=== PATIENT | male | born 1970 | race Caucasian/White ===

== ENCOUNTER 2016-11-24 20:25 | Inpatient (IN) | payer OTHER ==
--- NOTE | 2016-11-24 20:57 | PDOC ---
History of Present Illness - General History Source: Patient Exam Limitations: No Limitations - History of Present Illness Initial Comments: 11/24/16 21:11 The patient is a 45 year old male, with a significant past medical history of hyperlipidemia and hypertension, who presents to the emergency department complaining of numbness to the left shoulder radiating down the left arm since approximately 1.5 hours ago. The patient reports he experienced an episode of left shoulder pain radiating down his left arm and mild chest pain at approximately 03:30 this morning. He states he took nitroglycerin during this episode, which made him feel dizzy and lightheaded, but relieved his symptoms. The patient reports he woke up asymptomatic, however, after going to work today his chest discomfort and left sided shoulder pain reemerged. The patient reports mild dyspnea and oral dryness during this episode. The patient states he called EMS and was administered 2 nitroglycerin while being transported to the ED. He reports his chest pain has since resolved, but he feels residual numbness to the left arm. The patient reports he had a similar episode in March of 2015, where he underwent cardiac catheterization but no stents were placed. The patient reports no issues since March 2015 until this morning. He subjectively reports the sensation in his left arm is different than in his right arm. The patient denies any palpitations, diaphoresis, or lower extremity edema. The patient denies any fever, chills, cough, or headache. The patient denies any recent travel or sick contacts. Allergies: None reported. Past Surgical History: None reported. Social History: Current everyday smoker(2 cigarettes per day). Denies alcohol or drug use. Cardiologsit: Dr. Miller <Orville Blue - Last Filed: 11/24/16 21:19> - General History Source: Patient <Jose Serrato - Last Filed: 11/25/16 04:38> - General Chief Complaint: Pain, Acute Stated Complaint: CHEST PAIN Time Seen by Provider: 11/24/16 20:32 Past History <Orville Blue - Last Filed: 11/24/16 21:19> - Past Medical History Hypercholesterolemia: Yes - Immunization History Immunization Up to Date: No - Psycho/Social/Smoking Cessation Hx Anxiety: No Suicidal Ideation: No Smoking History: Current some day smoker Have you smoked in the past 12 months: Yes Cigars Per Day: 2 Information on smoking cessation initiated: No Hx Alcohol Use: No Drug/Substance Use Hx: No Substance Use Type: None <Jose Serrato - Last Filed: 11/25/16 04:38> - Past Medical History Allergies/Adverse Reactions: Allergies Allergy/AdvReac Type Severity Reaction Status Date / Time No Known Allergies Allergy Verified 11/24/16 20:42 Home Medications: Ambulatory Orders Aspirin [ASA -] 81 mg PO HS 03/17/15 Atorvastatin Ca [Lipitor] 40 mg PO HS 11/24/16 Cholecalciferol (Vitamin D3) [Vitamin D3] 50,000 unit PO WEEKLY 11/25/16 Diltiazem HCl [Diltiazem ER] 120 mg PO HS 11/25/16 Fenofibric Acid (Choline) [Fenofibric Acid] 135 mg PO HS 11/25/16 Nitroglycerin Sublingual [Nitrostat -] 0.4 mg SL [id number] PRN 11/25/16 [place]-3 Fatty Acids [[place]-3] 1,000 mg PO HS 11/25/16 Review of Systems - Review of Systems Able to Perform ROS?: Yes Comments:: 11/24/16 21:11 CONSTITUTIONAL: Absent: fever, no chills, no fatigue EYES: Absent: visual changes ENT: Absent: ear pain, no sore throat CARDIOVASCULAR: Present: +chest discomfort, +lightheadness Absent: syncope, palpitations, irregular heart rate, peripheral edema RESPIRATORY: Present: +dyspnea Absent: cough, orthopnea, wheezing, stridor, hemoptysis GI: Absent: abdominal pain, no nausea, no vomiting, no constipation, no diarrhea GENITOURINARY: Absent: dysuria, no frequency, no hematuria MUSKULOSKELETAL: Present: +left shoulder pain and numbness radiating down left arm Absent: back pain, no arthralgia, no myalgia SKIN: Absent: rash NEURO: Absent: headache <Frankie Blueilsy - Last Filed: 11/24/16 21:19> *Physical Exam - Vital Signs Last Vital Signs Temp Pulse Resp BP Pulse Ox 97.8 F 86 16 126/74 98 11/24/16 20:37 11/24/16 20:37 11/24/16 20:37 11/24/16 20:37 11/24/16 20:37 - Physical Exam Comments: 11/24/16 21:13 GENERAL: Well-appearing, well-nourished. No apparent distress. Afebrile. HEENT: Normocephalic, atraumatic. PERRLA, EOMI. No conjunctival pallor. Sclera are non- icteric. Moist mucous membranes. Oropharynx is clear. NECK: Supple. Full ROM. No JVD. Carotid pulses 2+ and symmetric, without bruits. No thyromegaly. No lymphadenopathy. CARDIOVASCULAR: Regular rate and rhythm. No murmurs, rubs, or gallops. Distal pulses are 2+ and symmetric. PULMONARY: No evidence of respiratory distress. Lungs clear to auscultation bilaterally. No wheezing, rales or rhonchi. ABDOMEN: Soft, non-distended, non-tender. EXTREMITIES: Normal ROM in all four extremities. No gross deformities. SKIN: Warm, dry. No rash NEUROLOGICAL: No focal neurological deficits. <Orville Blue - Last Filed: 11/24/16 21:19> - Vital Signs Last Vital Signs Temp Pulse Resp BP Pulse Ox 97.8 F 86 16 126/74 98 11/24/16 20:37 11/24/16 20:37 11/24/16 20:37 11/24/16 20:37 11/24/16 20:37 <Jose Serrato - Last Filed: 11/25/16 04:38> Heart Score/ECG Review - ECG Impressions Comment:: 11/24/16 21:20 Vent. Rate: 85 bpm IMPRESSION: Normal sinus rhythm. <Orville Blue - Last Filed: 11/24/16 21:19> - History History: Slightly suspicious - Electrocardiogram EKG: Normal - Age Age: 45-65 - Risk Factors Risk Factors Heart Score: Yes Hx Hypercholesterolemia, Yes Hx Hypertension Based on the list above the patient has:: 1-2 risk factors - Troponin Troponin: </= normal limit - Score Heart Score - Total: 2 <Jose Serrato - Last Filed: 11/25/16 04:38> ED Treatment Course - LABORATORY CBC & Chemistry Diagram: 11/24/16 20:46 11/24/16 20:46 - RADIOLOGY Radiograph Interpretation: 11/24/16 21:18 EXAM: CXR INTERPRETED BY: Dr. Joseph REVIEWED BY: Dr. Serrato IMPRESSION: No significant interval change or acute lung disease present. <Orville Blue - Last Filed: 11/24/16 21:19> - LABORATORY CBC & Chemistry Diagram: 11/24/16 20:46 11/24/16 20:46 - RADIOLOGY Radiology Studies Ordered: Category Date Time Status CHEST X-RAY PORTABLE* [RAD] Stat Radiology 11/24/16 20:39 Completed <Jose Serrato - Last Filed: 11/25/16 04:38> Medical Decision Making - Medical Decision Making 11/25/16 04:37 Dr. Serrato: The scribe's documentation has been prepared under my direction and personally reviewed by me in its entirery. I confirm that the note above accurately reflects all work, treatment, procedures, and medical decision making performed by me. <Jose Serrato - Last Filed: 11/25/16 04:38> *DC/Admit/Observation/Transfer - Attestations Scribe Attestion: 11/24/16 21:14 Documentation prepared by Orville Blue, acting as certified medical asst for Jose Serrato DO. <Orville Blue - Last Filed: 11/24/16 21:19> - Discharge Dispostion Admit: Yes <Jose Serrato - Last Filed: 11/25/16 04:38> Diagnosis at time of Disposition: Chest pain Qualifiers: Chest pain type: precordial chest pain Qualified Code(s): R07.2 - Precordial pain - Discharge Dispostion Condition at time of disposition: Fair - Referrals
[2016-11-24 21:13] LABS: BASOPHIL 0.5 % (0-2.0); EOSINOPHIL 3.7 % (0-4.5); MCH 29.3 pg (25.7-33.7); MCHC 33.9 g/dl (32.0-35.9); MEAN CELL VOLUME 86.5 fl (80-96); MEAN PLT VOLUME 8.2 fl (7.5-11.1); NEUTROPHILS 49.4 % (42.8-82.8); PLATELET COUNT 270 K/MM3 (134-434); RDW 13.1 % (11.9-15.9); WHITE BLOOD COUNT 8.4 K/mm3 (4.0-10.0)
[2016-11-24 21:18] LABS: INR 1.12 (0.82-1.09); PROTHROMBIN TIME (PATIENT) 12.3 SEC (9.98-11.88)
[2016-11-24 21:27] LABS: ALBUMIN 3.7 g/dl (3.4-5.0); ANION GAP 9 (8-16); BILIRUBIN,TOTAL 0.3 mg/dL (0.2-1.0); CALCIUM 8.4 mg/dL (8.5-10.1); CO2 26 mmol/L (21-32); CREATININE 1.3 mg/dL (0.7-1.3); GLUCOSE,RANDOM 100 mg/dL (74-106); MAGNESIUM 1.8 mg/dL (1.8-2.4); SGOT/AST 26 U/L (15-37); SGPT/ALT 54 U/L (12-78); TOT PROT 6.9 g/dl (6.4-8.2)
[2016-11-24 21:30] LABS: ALK PHOS 69 U/L (45-117); TROPONIN I < 0.02 ng/ml (0.00-0.05)
[2016-11-24] MEDS ORDERED: ONDANSETRON 4 MG/2 ML VIAL IVPUSH STA (21:53)
[2016-11-24] MEDS ORDERED: morphine CARPU-JECT 2 MG/1 ML DISP.SYRIN IVPUSH ONE (21:53)
[2016-11-24] MEDS ORDERED: ONDANSETRON 4 MG/2 ML VIAL ONE (22:15)
[2016-11-24] MEDS ORDERED: morphine CARPU-JECT 4 MG/1 ML DISP.SYRIN ONE (22:15)
[2016-11-24] MEDS ORDERED: morphine CARPU-JECT 2 MG/1 ML DISP.SYRIN ONE (22:15)
[2016-11-25] MEDS ORDERED: ATORVASTATIN CA 40 MG TABLET (FP) PO SCH
--- NOTE | 2016-11-25 00:25 | HP ---
CHIEF COMPLAINT: Chest pain PCP: none, previously [facility] but insurance changed HISTORY OF PRESENT ILLNESS: This is a 45 year old male with a past medical history of hyperlipidemia who presented to the ED via EMS for chest and left arm pain with left arm, neck and jaw numbness. The pain initially started yesterday at 330am; he took 1 NTG which relieved the pain and he went back to sleep. Upon awakening he felt fine and so he went to work. Later at work the pain recurred and so he called 911. EMS gave 2 NTG with some relief of pain but numbness persisted. EMS also gave 4 baby aspirin. The ED gave 6mg morphine and pt states his pain is a 3/10 at present. Pt denies any other complaints. No palpitations, SOB, nausea or vomiting. ER course was notable for: (1) unremarkable ECG (2) troponin WNL (3) Recent Travel: [place] in June PAST MEDICAL HISTORY: HLD Pt DENIES any h/o HTN, unclear why he is on cardizem CD PAST SURGICAL HISTORY: cardiac cath 03/2015, no stent, pt states there was a blockage which was relieved Social History: Smokin-2 cigars per month. DENIES ANY cigarette use Alcohol: 1x/week Drugs: pt denies Family History: mother with HLD father with arthritis 2 brothers and 2 sisters without any medical problems Allergies No Known Allergies Allergy (Verified 11/24/16 20:42) HOME MEDICATIONS: 3 Medication Instructions Recorded Aspirin [ASA -] 81 mg PO DAILY 03/17/15 Atorvastatin Ca [Lipitor] 40 mg PO HS 11/24/16 Cholecalciferol (Vitamin D3) 50,000 unit PO WEEKLY 11/25/16 [Vitamin D3] Diltiazem HCl [Diltiazem ER] 120 mg PO HS 11/25/16 Fenofibric Acid (Choline) 135 mg PO HS 11/25/16 [Fenofibric Acid] Nitroglycerin Sublingual 0.4 mg SL [id number] PRN 11/25/16 [Nitrostat -] [place]-3 Fatty Acids [[place]-3] 1,000 mg PO HS 11/25/16 REVIEW OF SYSTEMS CONSTITUTIONAL: Absent: fever, chills, diaphoresis, generalized weakness, malaise, loss of appetite, weight change HEENT: Absent: rhinorrhea, nasal congestion, throat pain, throat swelling, difficulty swallowing, mouth swelling, ear pain, eye pain, visual changes CARDIOVASCULAR: Present: chest pain, left arm pain/numbness Absent: syncope, palpitations, irregular heart rate, lightheadedness, peripheral edema RESPIRATORY: Absent: cough, shortness of breath, dyspnea with exertion, orthopnea, wheezing, stridor, hemoptysis GASTROINTESTINAL: Absent: abdominal pain, abdominal distension, nausea, vomiting, diarrhea, constipation, melena, hematochezia GENITOURINARY: Absent: dysuria, frequency, urgency, hesitancy, hematuria, flank pain, genital pain MUSCULOSKELETAL: Absent: myalgia, arthralgia, joint swelling, back pain, neck pain SKIN: Absent: rash, itching, pallor HEMATOLOGIC/IMMUNOLOGIC: Absent: easy bleeding, easy bruising, lymphadenopathy, frequent infections ENDOCRINE: Absent: unexplained weight gain, unexplained weight loss, heat intolerance, cold intolerance NEUROLOGIC: Absent: headache, focal weakness or paresthesias, dizziness, unsteady gait, seizure, mental status changes, bladder or bowel incontinence PSYCHIATRIC: Absent: anxiety, depression, suicidal or homicidal ideation, hallucinations. PHYSICAL EXAMINATION Vital Signs - 24 hr 3 11/24/16 20:37 Temperature 97.8 F Pulse Rate 86 Respiratory 16 Rate Blood Pressure 126/74 O2 Sat by Pulse 98 Oximetry (%) GENERAL: Awake, alert, and fully oriented, in no acute distress. HEAD: Normal with no signs of trauma. EYES: Pupils equal, round and reactive to light, extraocular movements intact, sclera anicteric, conjunctiva clear. No lid lag. EARS, NOSE, THROAT: Ears normal, nares patent, oropharynx clear without exudates. Moist mucous membranes. NECK: Normal range of motion, supple without lymphadenopathy, JVD, or masses. LUNGS: Breath sounds equal, clear to auscultation bilaterally. No wheezes, and no crackles. No accessory muscle use. HEART: Regular rate and rhythm, normal S1 and S2 without murmur, rub or gallop. ABDOMEN: Soft, nontender, not distended, normoactive bowel sounds, no guarding, no rebound, no masses. No hepatomegaly or splenomegaly. MUSCULOSKELETAL: Normal range of motion at all joints. No bony deformities or tenderness. No CVA tenderness. UPPER EXTREMITIES: 2+ pulses, warm, well-perfused. No cyanosis. No clubbing. Cap refill <2 seconds. No peripheral edema. LOWER EXTREMITIES: 2+ pulses, warm, well-perfused. No calf tenderness. No peripheral edema. NEUROLOGICAL: Cranial nerves II-XII intact. Normal speech. Normal gait. PSYCHIATRIC: Cooperative. Good eye contact. Appropriate mood and affect. SKIN: Warm, dry, normal turgor, no rashes or lesions noted. Laboratory Results - last 24 hr 3 11/24/16 11/24/16 11/24/16 20:46 20:46 20:46 WBC 8.4 D RBC 4.80 Hgb 14.1 Hct 41.6 MCV 86.5 MCHC 33.9 RDW 13.1 Plt Count 270 D MPV 8.2 Neutrophils % 49.4 Lymphocytes % 37.3 Monocytes % 9.1 Eosinophils % 3.7 Basophils % 0.5 INR 1.12 Sodium 140 Potassium 3.7 Chloride 105 Carbon Dioxide 26 Anion Gap 9 BUN 18 Creatinine 1.3 D Creat Clearance w eGFR 59.97 Random Glucose 100 Calcium 8.4 L Magnesium 1.8 Total Bilirubin 0.3 D AST 26 ALT 54 D Alkaline Phosphatase 69 Creatine Kinase 215 D Creatine Kinase Index 0.5 CK-MB (CK-2) 1.087 CK-MB (CK-2) Rel Index Troponin I < 0.02 Total Protein 6.9 Albumin 3.7 ECG: NSR rate 85, QTC 426, no ST/T changes CXR: Impression: No significant interval change or lung disease is present. ASSESSMENT/PLAN: 45yM with PMH HLD presented to ED for chest pain. He is being admitted for further observation. Chest pain - troponin neg x 1, trend x 2 more - echo ordered - HEART score 3 - place in observation - cardiology consult - received ASA via EMS HLD - cont home lipitor DVT PPX - expected LOS <48h, no chemoprophylaxis, if extends beyond, reassess indication FEN - defer IVF, tolerating po - repeat labs in am, lytes stable - regular diet Dispo: Pt currently requires inpatient observation for his emergent condition. Visit type - Emergency Visit Emergency Visit: Yes ED Registration Date: 11/24/16 Care time: The patient presented to the Emergency Department on the above date and was hospitalized for further evaluation of their emergent condition. - New Patient This patient is new to me today: Yes Date on this admission: 11/25/16 - Critical Care Critical Care patient: No
[2016-11-25] MEDS ORDERED: ATORVASTATIN CA 40 MG TABLET (FP) ONE (00:32)
[2016-11-25] MEDS ORDERED: PATIENT'S OWN MEDICATION (NON-FORMULARY) (Cholecalciferol (Vitamin D3) [Vitamin D3] 50,000 PO SCH (01:30)
[2016-11-25 01:35] VITALS: BMI 30.5
--- NOTE | 2016-11-25 02:32 | PN ---
Teaching Attending Note ATTENDING PHYSICIAN STATEMENT I saw and evaluated the patient. I reviewed the resident's note and discussed the case with the resident. I agree with the resident's findings and plan as documented. SUBJECTIVE: OBJECTIVE: ASSESSMENT AND PLAN:
[2016-11-25 03:24] LABS: TROPONIN I < 0.02 ng/ml (0.00-0.05)
[2016-11-25 09:43] LABS: BASOPHIL 0.5 % (0-2.0); MCH 29.7 pg (25.7-33.7); MCHC 34.5 g/dl (32.0-35.9); NEUTROPHILS 50.4 % (42.8-82.8); PLATELET COUNT 238 K/MM3 (134-434); RDW 12.8 % (11.9-15.9); WHITE BLOOD COUNT 7.4 K/mm3 (4.0-10.0)
[2016-11-25 09:52] LABS: CALCIUM 8.2 mg/dL (8.5-10.1)
[2016-11-25] MEDS ORDERED: ASPIRIN 81 MG CHEWABLE TABLETS PO SCH (10:00)
[2016-11-25 10:01] LABS: ANION GAP 7 (8-16); CHOLESTEROL 133 mg/dL (50-200); CO2 27 mmol/L (21-32); CREATININE 1.1 mg/dL (0.7-1.3); GLUCOSE,RANDOM 93 mg/dL (74-106); LDL CHOLESTEROL (ONLY SJRH) 53 mg/dL (5-100); MAGNESIUM 1.9 mg/dL (1.8-2.4); PHOSPHOROUS 3.4 mg/dL (2.5-4.9); TROPONIN I < 0.02 ng/ml (0.00-0.05)
--- NOTE | 2016-11-25 10:03 | EKG ---
Test Reason : Blood Pressure : / mmHG Vent. Rate : 073 BPM Atrial Rate : 073 BPM P-R Int : 210 ms QRS Dur : 100 ms QT Int : 396 ms P-R-T Axes : 056 017 021 degrees QTc Int : 436 ms SINUS RHYTHM WITH 1ST DEGREE A-V BLOCK OTHERWISE NORMAL ECG WHEN COMPARED WITH ECG OF 24-NOV-2016 20:34, [place] INTERVAL HAS INCREASED Confirmed by YOLANDA FAIRCHILD, JESSICA ([id number]) on 11/25/2016 10:03:31 AM Referred By: LOULOU FARRAR Confirmed By:JESSICA GUERRERO MD
--- NOTE | 2016-11-25 10:08 | EKG ---
Test Reason : Blood Pressure : / mmHG Vent. Rate : 085 BPM Atrial Rate : 085 BPM P-R Int : 168 ms QRS Dur : 088 ms QT Int : 358 ms P-R-T Axes : 022 -04 018 degrees QTc Int : 426 ms NORMAL SINUS RHYTHM WHEN COMPARED WITH ECG OF 18-MAR-2015 08:52, NO SIGNIFICANT CHANGE WAS FOUND Confirmed by JESSICA GUERRERO MD ([id number]) on 11/25/2016 10:08:03 AM Referred By: Confirmed By:JESSICA GUERRERO MD
--- NOTE | 2016-11-25 13:43 | PN ---
Physical Exam: SUBJECTIVE: Patient seen and examined at bedside, denies chest pain, shortness of breath, dizziness, light-headedness, headache, states had a good night sleep and feeling better. OBJECTIVE: Vital Signs Period Temp Pulse Resp BP Sys/Booth Pulse Ox Last 24 Hr 97.9 F-98.2 F 69-78 16-16 101-105/62-74 96-96 GENERAL: The patient is awake, alert, and fully oriented, in no acute distress. LUNGS: Breath sounds equal, clear to auscultation bilaterally, no wheezes, no crackles, no accessory muscle use. HEART: Regular rate and rhythm, S1, S2 without murmur, rub or gallop. ABDOMEN: Soft, nontender, nondistended, normoactive bowel sounds, no guarding, no rebound, no hepatosplenomegaly, no masses. EXTREMITIES: 2+ pulses, warm, well-perfused, no edema. NEUROLOGICAL: Cranial nerves II through XII grossly intact. Normal speech, gait not observed. PSYCH: Normal mood, normal affect. SKIN: Warm, dry, normal turgor, no rashes or lesions noted CBCD WBC 7.4 K/mm3 (4.0-10.0) 11/25/16 08:43 RBC 4.58 M/mm3 (4.00-5.60) 11/25/16 08:43 Hgb 13.6 GM/dL (11.7-16.9) 11/25/16 08:43 Hct 39.4 % (35.4-49) 11/25/16 08:43 MCV 86.0 fl (80-96) 11/25/16 08:43 MCHC 34.5 g/dl (32.0-35.9) 11/25/16 08:43 RDW 12.8 % (11.9-15.9) 11/25/16 08:43 Plt Count 238 K/MM3 (134-434) 11/25/16 08:43 MPV 8.0 fl (7.5-11.1) 11/25/16 08:43 CMP Sodium 137 mmol/L (136-145) 11/25/16 08:20 Potassium 4.2 mmol/L (3.5-5.1) 11/25/16 08:20 Chloride 103 mmol/L (98-107) 11/25/16 08:20 Carbon Dioxide 27 mmol/L (21-32) 11/25/16 08:20 Anion Gap 7 (8-16) L 11/25/16 08:20 BUN 13 mg/dL (7-18) D 11/25/16 08:20 Creatinine 1.1 mg/dL (0.7-1.3) 11/25/16 08:20 Creat Clearance w eGFR 59.97 (>60) 11/24/16 20:46 Random Glucose 93 mg/dL (74-106) 11/25/16 08:20 Calcium 8.2 mg/dL (8.5-10.1) L 11/25/16 08:20 Total Bilirubin 0.3 mg/dL (0.2-1.0) D 11/24/16 20:46 AST 26 U/L (15-37) 11/24/16 20:46 ALT 54 U/L (12-78) D 11/24/16 20:46 Alkaline Phosphatase 69 U/L (45-117) 11/24/16 20:46 Total Protein 6.9 g/dl (6.4-8.2) 11/24/16 20:46 Albumin 3.7 g/dl (3.4-5.0) 11/24/16 20:46 CARDIAC ENZYMES Creatine Kinase 153 IU/L (39-308) 11/25/16 08:20 Troponin I < 0.02 ng/ml (0.00-0.05) 11/25/16 08:20 Laboratory Results - last 24 hr 11/25/16 11/25/16 11/25/16 02:30 02:30 08:20 WBC RBC Hgb Hct MCV MCHC RDW Plt Count MPV Neutrophils % Lymphocytes % Monocytes % Eosinophils % Basophils % Sodium 137 Potassium 4.2 Chloride 103 Carbon Dioxide 27 Anion Gap 7 L BUN 13 D Creatinine 1.1 Random Glucose 93 Calcium 8.2 L Phosphorus 3.4 Magnesium 1.9 Creatine Kinase 171 D 153 Creatine Kinase Index 0.7 CK-MB (CK-2) 1.136 CK-MB (CK-2) Rel Index Cancelled Troponin I < 0.02 < 0.02 Triglycerides 180 H D Cholesterol 133 D Total LDL Cholesterol 53 D HDL Cholesterol 52 D 11/25/16 11/25/16 08:20 08:43 WBC 7.4 RBC 4.58 Hgb 13.6 Hct 39.4 MCV 86.0 MCHC 34.5 RDW 12.8 Plt Count 238 MPV 8.0 Neutrophils % 50.4 Lymphocytes % 33.6 Monocytes % 10.5 H Eosinophils % 5.0 H Basophils % 0.5 Sodium Potassium Chloride Carbon Dioxide Anion Gap BUN Creatinine Random Glucose Calcium Phosphorus Magnesium Creatine Kinase Creatine Kinase Index CK-MB (CK-2) CK-MB (CK-2) Rel Index Cancelled Troponin I Triglycerides Cholesterol Total LDL Cholesterol HDL Cholesterol 11/24/16 11/25/16 11/25/16 20:46 02:30 08:20 Troponin I < 0.02 < 0.02 < 0.02 Active Medications Generic Name Dose Route Start Last Admin Trade Name Freq PRN Reason Stop Dose Admin Aspirin 81 mg 11/25/16 10:00 11/25/16 10:31 Asa - PO 81 mg DAILY JOI Administration Atorvastatin Calcium 40 mg 11/25/16 00:00 11/25/16 00:32 Lipitor - PO 40 mg HS JOI Administration Diltiazem HCl 120 mg 11/25/16 22:00 Cardizem Cd - PO HS JOI Fenofibric Acid 135 mg 11/25/16 22:00 Trilipix - PO HS JOI [id number] Ethyl Esters 1 gm 11/25/16 22:00 Lovaza - PO HS JOI Imaging: ECHO (11/25/16): shows Left ventricular systolic function is normal. Mild mitral regurgitation and mild tricuspid regurgitation, right ventricular systolic pressure is normal, and no pericardial effusion. Stress ECHO (11/25/16): Negative exercise stress echocardiogram EKG (11/24/16): Normal sinus rhythm, no significant change from previous EKG CXR (11/24/16): no significant interval change, or no acute lung infiltrate present. ASSESSMENT: This is a 45 year old male with a past medical history of hypertension, hyperlipidemia, and history of cardiac cath w/o stent (03/2015) who presented to the ED after feeling pain the the chest and left arm, and numbness to the neck and jaw, admitted for cardiac work up and telemetry observation. PLAN: Cardiac:
--- NOTE | 2016-11-25 14:51 | DS ---
Physical Exam: SUBJECTIVE: Patient seen and examined at bedside, denies chest pain, shortness of breath, dizziness, light-headedness, headache, states had a good night sleep and feeling better. OBJECTIVE: Vital Signs Period Temp Pulse Resp BP Sys/Booth Pulse Ox Last 24 Hr 97.9 F-98.2 F 69-78 16-16 101-105/62-74 96-96 PHYSICAL EXAM GENERAL: The patient is awake, alert, and fully oriented, in no acute distress. LUNGS: Breath sounds equal, clear to auscultation bilaterally, no wheezes, no crackles, no accessory muscle use. HEART: Regular rate and rhythm, S1, S2 without murmur, rub or gallop. ABDOMEN: Soft, nontender, nondistended, normoactive bowel sounds, no guarding, no rebound, no hepatosplenomegaly, no masses. EXTREMITIES: 2+ pulses, warm, well-perfused, no edema. NEUROLOGICAL: Cranial nerves II through XII grossly intact. Normal speech, gait not observed. PSYCH: Normal mood, normal affect. SKIN: Warm, dry, normal turgor, no rashes or lesions noted LABS CBCD WBC 7.4 K/mm3 (4.0-10.0) 11/25/16 08:43 RBC 4.58 M/mm3 (4.00-5.60) 11/25/16 08:43 Hgb 13.6 GM/dL (11.7-16.9) 11/25/16 08:43 Hct 39.4 % (35.4-49) 11/25/16 08:43 MCV 86.0 fl (80-96) 11/25/16 08:43 MCHC 34.5 g/dl (32.0-35.9) 11/25/16 08:43 RDW 12.8 % (11.9-15.9) 11/25/16 08:43 Plt Count 238 K/MM3 (134-434) 11/25/16 08:43 MPV 8.0 fl (7.5-11.1) 11/25/16 08:43 CMP Sodium 137 mmol/L (136-145) 11/25/16 08:20 Potassium 4.2 mmol/L (3.5-5.1) 11/25/16 08:20 Chloride 103 mmol/L (98-107) 11/25/16 08:20 Carbon Dioxide 27 mmol/L (21-32) 11/25/16 08:20 Anion Gap 7 (8-16) L 11/25/16 08:20 BUN 13 mg/dL (7-18) D 11/25/16 08:20 Creatinine 1.1 mg/dL (0.7-1.3) 11/25/16 08:20 Creat Clearance w eGFR 59.97 (>60) 11/24/16 20:46 Random Glucose 93 mg/dL (74-106) 11/25/16 08:20 Calcium 8.2 mg/dL (8.5-10.1) L 11/25/16 08:20 Total Bilirubin 0.3 mg/dL (0.2-1.0) D 11/24/16 20:46 AST 26 U/L (15-37) 11/24/16 20:46 ALT 54 U/L (12-78) D 11/24/16 20:46 Alkaline Phosphatase 69 U/L (45-117) 11/24/16 20:46 Total Protein 6.9 g/dl (6.4-8.2) 11/24/16 20:46 Albumin 3.7 g/dl (3.4-5.0) 11/24/16 20:46 CARDIAC ENZYMES Creatine Kinase 153 IU/L (39-308) 11/25/16 08:20 Troponin I < 0.02 ng/ml (0.00-0.05) 11/25/16 08:20 11/24/16 11/25/16 11/25/16 20:46 02:30 08:20 Troponin I < 0.02 < 0.02 < 0.02 Imaging: ECHO (11/25/16): shows Left ventricular systolic function is normal. Mild mitral regurgitation and mild tricuspid regurgitation, right ventricular systolic pressure is normal, and no pericardial effusion. Stress ECHO (11/25/16): Negative exercise stress echocardiogram. EKG (11/24/16): Normal sinus rhythm, no significant change from previous EKG. CXR (11/24/16): no significant interval change, or no acute lung infiltrate present. HOSPITAL COURSE: ASSESSMENT: This is a 45 year old male with a past medical history of hypertension, hyperlipidemia, and history of cardiac cath w/o stent (03/2015) who presented to the ED after feeling pain the the chest and left arm, and numbness to the neck and jaw, that he felt for 1.5 hours. He had an episode earlier that day at 0330AM that morning, where he took 1 NTG, the pain subsided went back to sleep and woke up asymptomatic, and the second episode occurred when he went to work later that day, called EMS and was given, 2 NTG, and [address] to the hospital. In the ED, he was given 4mg of morphine and pain was relieved to 3/10, and was admitted for cardiac work up and telemetry observation. In the ER (11/24/16), he had unremarkable EKG, troponin WNL, his CXR showed no acute lung infiltrate present or acute disease. On 11/25/16, second and third troponin negative, ECHO shows normal LV systolic function and and RV systolic pressure, no pericardial effusion, and Stress Echo was negative, discussed results with Tech Intern, Hubert FAIRCHILD. Patient is stable for discharge, denies and chest pain, numbness, palpitations, dizziness, lightheadedness, shortness of breath, diaphoresis. Instructed patient to continue with home medications, follow up with PCP and Tech Intern within 1 week, and to return the ED if he has any new, progressing or worsening symptoms. Date of Admission:11/24/16 Date of Discharge: 11/25/16 This discharge took 35 minutes to complete. Minutes to complete discharge: 35 Discharge Summary Reason For Visit: CHEST PAIN Current Active Problems Chest pain (Acute) Condition: Improved - Instructions Diet, Activity, Other Instructions: Please return the to Emergency Department with any new, progressing, or worsening symptoms. 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 Referrals: Amandeep Barnard MD [Staff Physician] - 1 Week (Please follow up with primary care provider within 1 week. 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 ) Disposition: HOME - Home Medications Comprehensive Discharge Medication List: Ambulatory Orders Aspirin [ASA -] 81 mg PO HS 03/17/15 Atorvastatin Ca [Lipitor] 40 mg PO HS 11/24/16 Cholecalciferol (Vitamin D3) [Vitamin D3] 50,000 unit PO WEEKLY 11/25/16 Diltiazem HCl [Diltiazem ER] 120 mg PO HS 11/25/16 Fenofibric Acid (Choline) [Fenofibric Acid] 135 mg PO HS 11/25/16 Nitroglycerin Sublingual [Nitrostat -] 0.4 mg SL [id number] PRN 11/25/16 [place]-3 Fatty Acids [[place]-3] 1,000 mg PO HS 11/25/16 This patient is new to me today: Yes Date on this admission: 11/25/16 Emergency Visit: Yes ED Registration Date: 11/24/16 Care time: The patient presented to the Emergency Department on the above date and was hospitalized for further evaluation of their emergent condition. Critical Care patient: No - Discharge Referral Referred to [facility] Yes Physician Referral: Amandeep Ignacio MD ([facility])
[2016-11-25 15:22] VITALS: BP 114/68; PULSE 84; TEMP 98.7
--- NOTE | 2016-11-25 16:27 | CON.CARD ---
Consult Consult Specialty:: Cardiology Referred by:: Hospitalist Medicine Reason for Consultation:: Left arm numbness - History of Present Illness Chief Complaint: Left arm numbness History of Present Illness: The patient is a 45 year old male with a past medical history of hyperlipidemia , unremarkable [facility] 2015 admitted for left arm and neck numbness, denies exertional component, chest pain, near or true syncope, palpitations, orthopnea , PND or LE edema. Stress echo without ischemia. - History Source History Provided By: Patient Limitations to Obtaining History: No Limitations - Past Medical History Cardio/Vascular: Yes: Hyperlipdemia - Alcohol/Substance Use Hx Alcohol Use: No - Smoking History Smoking history: Current some day smoker Have you smoked in the past 12 months: Yes Home Medications - Allergies Allergies/Adverse Reactions: Allergies Allergy/AdvReac Type Severity Reaction Status Date / Time No Known Allergies Allergy Verified 11/24/16 20:42 - Home Medications Home Medications: Ambulatory Orders Aspirin [ASA -] 81 mg PO HS 03/17/15 Atorvastatin Ca [Lipitor] 40 mg PO HS 11/24/16 Cholecalciferol (Vitamin D3) [Vitamin D3] 50,000 unit PO WEEKLY 11/25/16 Diltiazem HCl [Diltiazem ER] 120 mg PO HS 11/25/16 Fenofibric Acid (Choline) [Fenofibric Acid] 135 mg PO HS 11/25/16 Nitroglycerin Sublingual [Nitrostat -] 0.4 mg SL [id number] PRN 11/25/16 [place]-3 Fatty Acids [[place]-3] 1,000 mg PO HS 11/25/16 Review of Systems - Review of Systems Neurological: reports: Numbness Vital Signs: Vital Signs Temperature 98.7 F 11/25/16 14:00 Pulse Rate 84 11/25/16 14:00 Respiratory Rate 18 11/25/16 14:00 Blood Pressure 114/68 11/25/16 14:00 O2 Sat by Pulse Oximetry (%) 96 11/25/16 08:48 Constitutional: Yes: No Distress, Calm Neck: Yes: Supple Respiratory: Yes: Regular, CTA Bilaterally Gastrointestinal: Yes: Normal Bowel Sounds, Soft Cardiovascular: Yes: Regular Rate and Rhythm JVD: No Carotid Bruit: No Heart Sounds: Yes: S1, S2 Edema: No - Other Data Labs, Other Data: CBC, BMP 11/25/16 08:43 11/25/16 08:20 INR, PTT INR 1.12 (0.82-1.09) 11/24/16 20:46 Troponin, BNP 11/25/16 11/25/16 02:30 08:20 Troponin I < 0.02 < 0.02 Troponin, BNP 11/25/16 11/25/16 02:30 08:20 Troponin I < 0.02 < 0.02 NSR @ [address] 1[address] deg AVB Echo: Report Reviewed Ejection Fraction %: LVEF > or = 40 % Imaging - Results Chest X-ray: Report Reviewed (NAD) Problem List - Problems (1) Atypical chest pain Code(s): R07.89 - OTHER CHEST PAIN (2) Hyperlipidemia Code(s): E78.5 - HYPERLIPIDEMIA, UNSPECIFIED Qualifiers: Hyperlipidemia type: mixed hyperlipidemia Qualified Code(s): E78.2 - Mixed hyperlipidemia (3) Hypertension Code(s): I10 - ESSENTIAL (PRIMARY) HYPERTENSION Qualifiers: Hypertension type: essential hypertension Qualified Code(s): I10 - Essential (primary) hypertension Assessment/Plan 11/25/2016 Echo Normal biventricular size and fxn, mild MR, TR, stress echo without EKG or echo criteria for ischemia 1. Atypical chest pain syndrome with neg stress echo for ischemia 2. HTN 3. Hyperlipidemia P:1. Patient may be d/dalia from CV standpoint with f/u in office with Dr. Miller 2. Continue ASA 81 qd, Lipitor 40 qhs, Cardizem CD 120 qd, fenofibrate 135 qhs, Lovavza 1 qhs 3. Thank you for consultative opportunity
[2016-11-25] MEDS ORDERED: FENOFIBRIC ACID 135 MG CAP PO SCH (22:00)
[2016-11-25] MEDS ORDERED: OMEGA-3 ACID ETHYL ESTERS (FATTY-ACIDS) 1 GM CAPSULE (FP) PO SCH (22:00)
== END 2016-11-25 17:25 | disposition home or self-care (01) | DRG 143 ==
LOC: JER 20:25 → JERBED 21:52 → J4S 11-25 00:48
PROVIDERS: ADMIT Internal Medicine; ATTEND Registered Nurse
DX: R07.89 Other chest pain (principal); E78.5 Hyperlipidemia, unspecified; F17.210 Nicotine dependence, cigarettes, uncomplicated; I10 Essential (primary) hypertension
CPT/HCPCS: 36415; 71010-TC; 80048; 80053; 80061; 82550; 82553; 83721; 83735; 84100; 84484; 85025; 85610; 93005; 93010; 93306-TC; 93351; 99285-25

== ENCOUNTER 2017-05-05 20:25 | Emergency (ER) | payer OTHER ==
[2017-05-05 20:43] VITALS: BP 144/81; PULSE 78; TEMP 97.5; BMI 29.7
--- NOTE | 2017-05-05 21:25 | PDOC ---
History of Present Illness - General History Source: Patient Exam Limitations: No Limitations - History of Present Illness Initial Comments: 05/05/17 21:34 The patient is a 46 year old male with a significant past medical history of borderline diabetes, HLD and HTN who presents to the ED with complaints of chest pain for an hour and a half. The patient reports he sat down after work and had a sudden onset of mid sternal chest pressure. He reports the chest pain radiates down his left arm. Patient also states he had a similar episode last Monday after eating breakfast. He states this is his third episode in the past 2 years. Patient recently traveled from [place]. Denies fevers or chills. Denies shortness of breath or cough. Denies palpitations. Denies abdominal pain, nausea, vomiting, or diarrhea. Denies any other symptoms. Social hx: Former smoker. Denies alcohol or drug use. 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 PMD: Brittney Lawler <Nicolás Liz - Last Filed: 05/05/17 21:34> <Venita Darden - Last Filed: 05/06/17 02:31> - General Chief Complaint: Pain Stated Complaint: CHEST PAIN Time Seen by Provider: 05/05/17 20:48 Past History <Nicolás Liz - Last Filed: 05/05/17 21:34> - Past Medical History Cardiac Disorders: Yes (angina, CAD) HTN: Yes Hypercholesterolemia: Yes - Surgical History Cardiac Surgery: Yes (cardiac cath 2014-no stents placed) Orthopedic Surgery: No - Immunization History Immunization Up to Date: No - Psycho/Social/Smoking Cessation Hx Anxiety: No Suicidal Ideation: Yes Smoking History: Never smoked Have you smoked in the past 12 months: Yes Cigars Per Day: 2 Information on smoking cessation initiated: No Hx Alcohol Use: No Drug/Substance Use Hx: No Substance Use Type: None Hx Substance Use Treatment: No <Venita Darden - Last Filed: 05/06/17 02:31> - Past Medical History Allergies/Adverse Reactions: Allergies Allergy/AdvReac Type Severity Reaction Status Date / Time No Known Allergies Allergy Verified 05/05/17 20:36 Home Medications: Ambulatory Orders Aspirin [ASA -] 81 mg PO HS 03/17/15 Atorvastatin Ca [Lipitor] 40 mg PO HS 11/24/16 Cholecalciferol (Vitamin D3) [Vitamin D3] 50,000 unit PO WEEKLY 11/25/16 Diltiazem HCl [Diltiazem 24Hr ER] 120 mg PO HS 11/25/16 Fenofibric Acid (Choline) [Fenofibric Acid] 135 mg PO HS 11/25/16 Nitroglycerin Sublingual [Nitrostat -] 0.4 mg SL [id number] PRN 11/25/16 [place]-3 Fatty Acids [[place]-3] 1,000 mg PO HS 11/25/16 Review of Systems - Review of Systems Able to Perform ROS?: Yes Comments:: 05/05/17 21:35 CONSTITUTIONAL: Absent: fever, chills, diaphoresis, generalized weakness, malaise, loss of appetite HEENT: Absent: rhinorrhea, nasal congestion, throat pain, throat swelling, difficulty swallowing, mouth swelling, ear pain, eye pain, visual Changes CARDIOVASCULAR: + chest pain, arm pain Absent: syncope, palpitations, irregular heart rate, lightheadedness, peripheral edema RESPIRATORY: Absent: cough, shortness of breath, dyspnea with exertion, orthopnea, wheezing, stridor, hemoptysis GASTROINTESTINAL: Absent: abdominal pain, abdominal distension, nausea, vomiting, diarrhea, constipation, melena, hematochezia GENITOURINARY: Absent: dysuria, frequency, urgency, hesitancy, hematuria, flank pain, genital pain MUSCULOSKELETAL: Absent: myalgia, arthralgia, joint swelling SKIN: Absent: rash, itching, pallor HEMATOLOGIC/IMMUNOLOGIC: Absent: easy bleeding, easy bruising, lymphadenopathy, frequent infections ENDOCRINE: Absent: unexplained weight gain, unexplained weight loss, heat intolerance, cold intolerance NEUROLOGIC: Absent: headache, focal weakness or paresthesias, dizziness, unsteady gait, seizure, mental status changes, bladder or bowel incontinence PSYCHIATRIC: Absent: anxiety, depression, suicidal or homicidal ideation, hallucinations. All Other Systems: Reviewed and Negative <Nicolás Liz - Last Filed: 05/05/17 21:34> *Physical Exam - Vital Signs Last Vital Signs Temp Pulse Resp BP Pulse Ox 97.5 F L 78 18 144/81 98 05/05/17 20:36 05/05/17 20:36 05/05/17 20:36 05/05/17 20:36 05/05/17 20:36 - Physical Exam Comments: 05/05/17 21:35 GENERAL: Well developed, well nourished. Awake and alert. No acute distress. HEENT: Normocephalic, atraumatic. PERRLA, EOMI. No conjunctival pallor. Sclera are non- icteric. Moist mucous membranes. Oropharynx is clear. NECK: Supple. Full ROM. No JVD. Carotid pulses 2+ and symmetric, without bruits. No thyromegaly. NCo lymphadenopathy. CARDIOVASCULAR: Regular rate and rhythm. No murmurs, rubs, or gallops. Distal pulses are 2+ and symmetric. PULMONARY: No evidence of respiratory distress. Lungs clear to auscultation bilaterally. No wheezing, rales or rhonchi. ABDOMINAL: Soft. Non-tender. Non-distended. No rebound or guarding. No organomegaly. Normoactive bowel sounds. MUSCULOSKELETAL Normal range of motion at all joints. No bony deformities or tenderness. No CVA tenderness. EXTREMITIES: No cyanosis. No clubbing. No edema. No calf tenderness. SKIN: Warm and dry. Normal capillary refill. No rashes. No jaundice. NEUROLOGICAL: Alert, awake, appropriate. Cranial nerves 2-12 intact. No deficits to light touch and temperature in face, upper extremities and lower extremities. No motor deficits in the in face, upper extremities and lower extremities. Normoreflexic in the upper and lower extremities. Normal speech. Toes are down- going bilaterally. Gait is normal without ataxia. PSYCHIATRIC: Cooperative. Good eye contact. Appropriate mood and affect. <Nicolás Liz - Last Filed: 05/05/17 21:34> - Vital Signs Last Vital Signs Temp Pulse Resp BP Pulse Ox 97.5 F L 78 18 144/81 98 05/05/17 20:36 05/05/17 20:36 05/05/17 20:36 05/05/17 20:36 05/05/17 20:36 <Venita Darden - Last Filed: 05/06/17 02:31> ED Treatment Course - LABORATORY CBC & Chemistry Diagram: 05/05/17 21:34 05/05/17 21:57 <Venita Darden - Last Filed: 05/06/17 02:31> Medical Decision Making - Medical Decision Making 05/06/17 02:28 Pt comes with CP that is atypical and began today after work. In the last few months, pt has had 3-4 episodes just like this. 2 years ago pt had completely clear coronories on cath. 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 Pt has slight pain at this time. Vitals are stable. Pt has no other complaints. He is not a smoker. Exam normal. EKG normal. CXR normal. Pt may have printzmental's angina. Pt will follow with cardiology and possible holter monitoring and repeat catheterization of cardiac tissues. <Venita Darden - Last Filed: 05/06/17 02:31> *DC/Admit/Observation/Transfer - Attestations Scribe Attestion: 05/05/17 21:35 Documentation prepared by Nicolás Liz, acting as special forces medical sergeant for Venita Darden MD <Nicolás Liz - Last Filed: 05/05/17 21:34> - Discharge Dispostion Admit: No <Venita Darden - Last Filed: 05/06/17 02:31> Diagnosis at time of Disposition: Atypical chest pain, Angina at rest - Discharge Dispostion Disposition: HOME Condition at time of disposition: Stable - Referrals Referrals: Brittney Sullivan MD [Primary Care Provider] - - Patient Instructions Printed Discharge Instructions: Variant Angina: Heart Spasms
[2017-05-05] MEDS ORDERED: ASPIRIN 81 MG CHEWABLE TABLETS PO ONE (21:35)
[2017-05-05] MEDS ORDERED: ASPIRIN COATED 81 MG TABLET.EC ONE (22:00)
[2017-05-05 22:22] LABS: BASOPHIL 0.8 % (0-2.0); EOSINOPHIL 2.9 % (0-4.5); MCH 29.3 pg (25.7-33.7); MCHC 33.5 g/dl (32.0-35.9); MEAN CELL VOLUME 87.5 fl (80-96); MEAN PLT VOLUME 7.8 fl (7.5-11.1); NEUTROPHILS 59.9 % (42.8-82.8); PLATELET COUNT 230 K/MM3 (134-434); RDW 13.4 % (11.9-15.9); WHITE BLOOD COUNT 9.7 K/mm3 (4.0-10.0)
[2017-05-05 22:59] LABS: ALBUMIN 3.8 g/dl (3.4-5.0); ANION GAP 11 (8-16); BILIRUBIN,TOTAL 0.4 mg/dL (0.2-1.0); CALCIUM 8.8 mg/dL (8.5-10.1); CO2 25 mmol/L (21-32); CREATININE 0.9 mg/dL (0.7-1.3); GLUCOSE,RANDOM 103 mg/dL (74-106); SGPT/ALT 54 U/L (12-78); TOT PROT 7.1 g/dl (6.4-8.2)
[2017-05-05 23:02] LABS: ALK PHOS 75 U/L (45-117); CPK 204 IU/L (39-308); TROPONIN I < 0.02 ng/ml (0.00-0.05)
[2017-05-05 23:04] LABS: SGOT/AST 32 U/L (15-37)
[2017-05-05 23:23] LABS: INR 1.07 (0.82-1.09); PROTHROMBIN TIME (PATIENT) 11.8 SEC (9.98-11.88)
--- NOTE | 2017-05-07 18:44 | EKG ---
Test Reason : Blood Pressure : / mmHG Vent. Rate : 081 BPM Atrial Rate : 081 BPM P-R Int : 170 ms QRS Dur : 104 ms QT Int : 380 ms P-R-T Axes : 045 -05 048 degrees QTc Int : 441 ms NORMAL SINUS RHYTHM INCOMPLETE RIGHT BUNDLE BRANCH BLOCK BORDERLINE ECG WHEN COMPARED WITH ECG OF 25-NOV-2016 08:29, [place] INTERVAL HAS DECREASED INCOMPLETE RIGHT BUNDLE BRANCH BLOCK IS NOW PRESENT FOLLOW UP TRACING IS RECOMMENDED Confirmed by AVERY QUINN MD ([id number]) on 05/07/2017 6:44:02 PM Referred By: Confirmed By:AVERY QUINN MD
== END 2017-05-05 23:36 | disposition home or self-care (01) ==
LOC: JER 20:25
DX: R07.89 Other chest pain (principal); I25.118 Atherosclerotic heart disease of native coronary artery with other forms of angina pectoris
CPT/HCPCS: 36415; 71020-TC; 80053; 84484; 85025; 85610; 93005; 93010; 99281-25

== ENCOUNTER 2018-03-28 21:12 | Observation (INO) | payer OTHER ==
[2018-03-28 21:21] VITALS: BMI 29.7
[2018-03-28] MEDS ORDERED: ASPIRIN 81 MG CHEWABLE TABLETS PO ONE (21:21)
--- NOTE | 2018-03-28 21:21 | PDOC ---
Rapid Medical Evaluation Time Seen by Provider: 03/28/18 21:15 Medical Evaluation: Allergies Allergy/AdvReac Type Severity Reaction Status Date / Time No Known Allergies Allergy Verified 05/05/17 20:36 03/28/18 21:16 Pt. 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 States he took a nitro 5 minutes ago with little relief of his pain. Admits to SOB. States he saw his PCP today who states he had EKG changes. Last cardiac cath in 2014, no stenting. Hx of HLD, pre-diabetic Exam: Appears in mild distress, AAOx3, breathing easily. RRR, CTAB Orders: CBC, CMP, Trop, Pt/INR, Mag, EKG, CXR Pt. to proceed to ED for further evaluation PCP: Brittney Sullivan MD Staple Processing Machine Operator: Dr. Miller Discharge Disposition - Diagnosis Chest pain Qualifiers: Chest pain type: unspecified Qualified Code(s): R07.9 - Chest pain, unspecified - Referrals - Patient Instructions - Post Discharge Activity
--- NOTE | 2018-03-28 22:21 | PDOC ---
History of Present Illness - General History Source: Patient Exam Limitations: No Limitations - History of Present Illness Initial Comments: 03/28/18 22:37 The patient is a 47 year old male, with a significant past medical history of borderline diabetes, HLD, cardiac cath (2014 - no stents) and HTN, who presents to the emergency department complaining of chest pain onset today. He describes his chest pain as ranging from mild to moderate, without radiation or modifying factors. He notes that he had a chest pain episode 2 days ago and drove to the ED but decided against being seeing. At the time he had chest pain, he also had shortness of breath, jaw pain, left arm pain and sweaty palms. He notes that he saw Dr. Brittney Sullivan today and made an appointment to see Dr. Miller tomorrow. The last time he saw Dr. Miller was 6 months ago. The patient was given Nitro and has improved. The patient denies headache or dizziness. Denies fever, chills, nausea, vomiting , diarrhea and constipation. Allergies: None Past surgical history: Cardiac cath (no stents) Social History: Cigar use (2 daily). No alcohol or drug use reported PMD: Dr. Brittney Sullivan. <Jose Rivera - Last Filed: 03/28/18 22:37> <Lisseth Hernandez - Last Filed: 03/29/18 01:41> - General Chief Complaint: Chest Pain Stated Complaint: CHEST PAIN Time Seen by Provider: 03/28/18 21:15 Past History <Jose Rivera - Last Filed: 03/28/18 22:37> - Past Medical History Cardiac Disorders: Yes (angina, CAD) COPD: No HTN: Yes Hypercholesterolemia: Yes - Surgical History Cardiac Surgery: Yes (cardiac cath 2014-no stents placed) Orthopedic Surgery: No - Immunization History Immunization Up to Date: No - Suicide/Smoking/Psychosocial Hx Smoking History: Never smoked Have you smoked in the past 12 months: Yes Cigars Per Day: 2 Information on smoking cessation initiated: No Hx Alcohol Use: No Drug/Substance Use Hx: No Substance Use Type: None Hx Substance Use Treatment: No <Lisseth Hernandez - Last Filed: 03/29/18 01:41> - Past Medical History Allergies/Adverse Reactions: Allergies Allergy/AdvReac Type Severity Reaction Status Date / Time No Known Allergies Allergy Verified 03/28/18 21:20 Home Medications: Ambulatory Orders Aspirin [ASA -] 81 mg PO HS 03/17/15 Atorvastatin Ca [Lipitor] 40 mg PO HS 11/24/16 Cholecalciferol (Vitamin D3) [Vitamin D3] 50,000 unit PO WEEKLY 11/25/16 Diltiazem HCl [Diltiazem 24Hr ER] 120 mg PO HS 11/25/16 Fenofibric Acid (Choline) [Fenofibric Acid] 135 mg PO HS 11/25/16 Nitroglycerin Sublingual [Nitrostat -] 0.4 mg SL [id number] PRN 11/25/16 [place]-3 Fatty Acids [[place]-3] 1,000 mg PO HS 11/25/16 Review of Systems - Review of Systems Able to Perform ROS?: Yes Comments:: 03/28/18 22:37 GENERAL/CONSTITUTIONAL: No fever or chills. No weakness. HEAD, EYES, EARS, NOSE AND THROAT: No change in vision. No ear pain or discharge. No sore throat. GASTROINTESTINAL: No nausea, vomiting, diarrhea or constipation. GENITOURINARY: No dysuria, frequency, or change in urination. CARDIOVASCULAR: (+) Chest pain. No shortness of breath. RESPIRATORY: No cough, wheezing, or hemoptysis. MUSCULOSKELETAL: No joint or muscle swelling or pain. No neck or back pain. SKIN: No rash NEUROLOGIC: No headache, vertigo, loss of consciousness, or change in strength/ sensation. ENDOCRINE: No increased thirst. No abnormal weight change. HEMATOLOGIC/LYMPHATIC: No anemia, easy bleeding, or history of blood clots. ALLERGIC/IMMUNOLOGIC: No hives or skin allergy. <Jose Rivera - Last Filed: 03/28/18 22:37> *Physical Exam - Vital Signs Last Vital Signs Temp Pulse Resp BP Pulse Ox 98.5 F 84 18 145/83 100 03/28/18 21:16 03/28/18 21:16 03/28/18 21:16 03/28/18 21:16 03/28/18 21:16 - Physical Exam Comments: 03/28/18 22:37 Constitutional: Awake, alert, oriented. No acute distress. Head: Normocephalic. Atraumatic Eyes: PERRL. EOMI. Conjunctivae are not pale. ENT: Mucous membranes are moist and intact. Posterior pharynx without exudates or erythema. Uvula midline. Neck: Supple. Full ROM. No lymphadenopathy. Cardiovascular: Regular rate. Regular rhythm. S1, S2 regular. Distal pulses are 2+ and symmetric. Pulmonary/Chest: No evidence of respiratory distress. Clear to auscultation bilaterally No wheezing, rales or rhonchi. Abdominal: Soft and non-distended. There is no tenderness. No rebound, guarding or rigidity. No organomegaly. No palpable masses. Good bowel sounds. Back: No CVA tenderness. Musculoskeletal: No edema. No cyanosis. No clubbing. Full range of motion in all extremities. Nocalf tenderness. Radial/pedal pulses are intact and 2+ bilaterally Skin: Skin is warm and dry. No petechiae. No purpura. Neurological: Alert and oriented to person, place, and time. Cranial nerves II -XII are grossly intact. Normal speech. Strength is grossly symmetric. No sensory deficits. Psychiatric: Good eye contact. Normal interaction, affect and behavior. <Jose Rivera - Last Filed: 03/28/18 22:37> - Vital Signs Last Vital Signs Temp Pulse Resp BP Pulse Ox 98.5 F 84 18 145/83 100 03/28/18 21:16 03/28/18 21:16 03/28/18 21:16 03/28/18 21:16 03/28/18 21:16 <Lisseth Hernandez - Last Filed: 03/29/18 01:41> Heart Score/ECG Review - ECG Intrepretation Comment:: 03/28/18 23:14 sinus at 96, nl axis, nl interval, no acute st/t wave findings <Lisseth Hernandez - Last Filed: 03/29/18 01:41> ED Treatment Course - LABORATORY CBC & Chemistry Diagram: 03/28/18 22:30 03/28/18 22:30 <Lisseth Hernandez - Last Filed: 03/29/18 01:41> Medical Decision Making - Medical Decision Making 03/28/18 23:14 a/p: 47yo male with hx of CAD s/p angioplasty (no stents) -cp monday that radiated to jaw, did not come to the ED -CP today - nausea, diaphoresis, jaw radiation and arm radiation -took nitro which helped the pain -seen by Dr. Sullivan PMD today has appt with Dr. Miller tomorrow -will check labs, ekg, cxr will give asa will monitor and reassess no cp at this time 03/29/18 00:44 cxr without acute findings initial trop negative will place in obs consult placed to Dr. Miller 03/29/18 01:40 case discussed with [facility] who accept pt to service covering Ellie Sullivan. <Lisseth Hernandez - Last Filed: 03/29/18 01:41> *DC/Admit/Observation/Transfer - Attestations Scribe Attestion: 03/28/18 22:37 Documentation prepared by Jose Rivera, acting as medical assisting instructor for Lisseth Hernandez DO <Jose Rivera - Last Filed: 03/28/18 22:37> - Discharge Dispostion Decision to Admit order: Yes - Attestations Physician Attestion: 03/28/18 23:17 I, Dr. Lisseth Hernandez, DO, attest that this document has been prepared under my direction and personally reviewed by me in its entirety. I further attest, that it accurately reflects all work, treatment, procedures and medical decision -making performed by me. <Lisseth Hernandez - Last Filed: 03/29/18 01:41> Diagnosis at time of Disposition: Chest pain Qualifiers: Chest pain type: unspecified Qualified Code(s): R07.9 - Chest pain, unspecified - Discharge Dispostion Condition at time of disposition: Fair - Referrals Referrals: Flex Miller MD [Primary Care Provider] - Brittney Sullivan MD [Staff Physician] - - Patient Instructions - Post Discharge Activity
[2018-03-28] MEDS ORDERED: ASPIRIN 81 MG CHEWABLE TABLETS ONE (23:27)
[2018-03-28 23:44] LABS: BASO % 0.6 % (0-2.0); EOS % 5.2 % (0-4.5); HEMATOCRIT 41.1 % (35.4-49); HEMOGLOBIN 13.9 GM/dL (11.7-16.9); LYMPH % 28.3 % (8-40); MCH 29.5 pg (25.7-33.7); MCHC 33.9 g/dl (32.0-35.9); MEAN CELL VOLUME 87.1 fl (80-96); MEAN PLT VOLUME 7.9 fl (7.5-11.1); MONO % 8.6 % (3.8-10.2); NEUT % 57.3 % (42.8-82.8); PLATELET COUNT 284 K/MM3 (134-434); RBC 4.72 M/mm3 (4.00-5.60); RDW 12.6 % (11.9-15.9); WHITE BLOOD COUNT 8.4 K/mm3 (4.0-10.0)
[2018-03-28 23:55] LABS: URINE APPEARANCE CLOUDY; URINE BILIRUBIN NEGATIVE (<2.0 mg/dL); URINE COLOR YELLOW; URINE GLUCOSE (UA) NEGATIVE (NEGATIVE); URINE KETONE NEGATIVE (NEGATIVE); URINE LEUK ESTERASE NEGATIVE (NEGATIVE); URINE NITRITE NEGATIVE (NEGATIVE); URINE PROTEIN NEGATIVE (NEGATIVE)
[2018-03-28 23:56] LABS: INR 1.1 (0.82-1.09); PROTHROMBIN TIME (PATIENT) 12.4 SEC (9.7-13.0)
[2018-03-29 00:08] LABS: ALBUMIN 3.6 g/dl (3.4-5.0); ANION GAP 5 (8-16); BILIRUBIN,TOTAL 0.4 mg/dL (0.2-1.0); BLOOD UREA NITROGEN 21 mg/dL (7-18); CALCIUM 8.9 mg/dL (8.5-10.1); CHLORIDE 107 mmol/L (98-107); CO2 27 mmol/L (21-32); CREATININE 1.2 mg/dL (0.7-1.3); GLUCOSE,RANDOM 99 mg/dL (74-106); MAGNESIUM 1.9 mg/dL (1.8-2.4); POTASSIUM 3.8 mmol/L (3.5-5.1); SGOT/AST 22 U/L (15-37); SGPT/ALT 40 U/L (12-78); SODIUM 139 mmol/L (136-145)
[2018-03-29 00:09] LABS: ALK PHOS 64 U/L (45-117)
[2018-03-29] MEDS ORDERED: ACETAMINOPHEN 325 MG TABLET (FP) PO PRN (03:18)
[2018-03-29] MEDS ORDERED: NITROGLYCERIN SUBLINGUAL 1/150 0.4 MG TAB SL PRN (03:20)
--- NOTE | 2018-03-29 03:36 | HP ---
CHIEF COMPLAINT: chest discomfort PCP: Dr. Sullivan HISTORY OF PRESENT ILLNESS: 47M w/ hx of HLD, HTN, pre-DM, and cardiac cath in 2014 (no stents performed) presenting with chest discomfort today. Pt reports that chest discomfort began while driving his car, was left-sided, and radiated to his left arm, left shoulder, and jaw. It was associated with SOB, lightheadedness, and sweaty palms. It lasted for about 20 minutes until he took nitrostat which relieved it. He denies fevers, chills, headache, PAK, PND, orthopnea, LE edema, abdominal pain, emesis, diarrhea, constipation, and dysuria. Pt went to his PCP , Dr. Sullivan, who sent him to [facility]. Of note, pt had a similar episode of chest pain this past monday for which he went to the ED, but once his pain subsided he went back home. He follows with combat systems officer, Dr. Miller, whom he saw 6 months ago. He has an appointment scheduled for yessy. ER course was notable for: (1) history/exam (2) labs/imaging (3) EKG Recent Travel: PAST MEDICAL HISTORY: as stated above PAST SURGICAL HISTORY: cardiac cath (2014) Social History: Smoking: a cigar every few days Alcohol: social Drugs: denies Pt lives in [place] with his and 3 kids. 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 Family History: father- HLD mother- HLD brother- DM Allergies No Known Allergies Allergy (Verified 03/28/18 21:20) HOME MEDICATIONS: Home Medications Medication Instructions Recorded Aspirin [ASA -] 81 mg PO HS 03/17/15 Atorvastatin Ca [Lipitor] 40 mg PO HS 11/24/16 Cholecalciferol (Vitamin D3) 50,000 unit PO WEEKLY 11/25/16 [Vitamin D3] Diltiazem HCl [Diltiazem 24Hr ER] 120 mg PO HS 11/25/16 Fenofibric Acid (Choline) 135 mg PO HS 11/25/16 [Fenofibric Acid] Nitroglycerin Sublingual 0.4 mg SL [id number] PRN 11/25/16 [Nitrostat -] [place]-3 Fatty Acids [[place]-3] 1,000 mg PO HS 11/25/16 REVIEW OF SYSTEMS CONSTITUTIONAL: Absent: fever, chills, diaphoresis, generalized weakness, malaise, loss of appetite, weight change HEENT: Absent: rhinorrhea, nasal congestion, throat pain, throat swelling, difficulty swallowing, mouth swelling, ear pain, eye pain, visual changes CARDIOVASCULAR: Absent: syncope, palpitations, irregular heart rate, peripheral edema present: chest pain, lightheadedness RESPIRATORY: Absent: cough, dyspnea with exertion, orthopnea, wheezing, stridor, hemoptysis present: SOB GASTROINTESTINAL: Absent: abdominal pain, abdominal distension, nausea, vomiting, diarrhea, constipation, melena, hematochezia GENITOURINARY: Absent: dysuria, frequency, urgency, hesitancy, hematuria, flank pain, genital pain MUSCULOSKELETAL: Absent: myalgia, arthralgia, joint swelling, back pain, neck pain SKIN: Absent: rash, itching, pallor HEMATOLOGIC/IMMUNOLOGIC: Absent: easy bleeding, easy bruising, lymphadenopathy, frequent infections ENDOCRINE: Absent: unexplained weight gain, unexplained weight loss, heat intolerance, cold intolerance NEUROLOGIC: Absent: headache, focal weakness or paresthesias, dizziness, unsteady gait, seizure, mental status changes, bladder or bowel incontinence PSYCHIATRIC: Absent: anxiety, depression, suicidal or homicidal ideation, hallucinations. PHYSICAL EXAMINATION Vital Signs - 24 hr 03/28/18 03/29/18 21:16 00:12 Temperature 98.5 F 98.9 F Pulse Rate 84 Pulse Rate [ 65 Right Apical] Respiratory 18 18 Rate Blood Pressure 145/83 Blood Pressure 114/71 [Right Arm] O2 Sat by Pulse 100 97 Oximetry (%) GENERAL: middle aged male, awake, alert, and fully oriented, in no acute distress. HEENT: NC, AT LUNGS: Breath sounds equal, clear to auscultation bilaterally. No wheezes, and no crackles. No accessory muscle use. HEART: Regular rate and rhythm, normal S1 and S2 without murmur, rub or gallop. ABDOMEN: Soft, nontender, not distended, normoactive bowel sounds, no guarding, no rebound, no masses. No hepatomegaly or splenomegaly. MUSCULOSKELETAL: no LE edema NEUROLOGICAL: Cranial nerves II-XII intact. Normal speech Laboratory Results - last 24 hr 03/28/18 03/28/18 03/28/18 22:30 22:30 22:30 WBC 8.4 RBC 4.72 Hgb 13.9 Hct 41.1 MCV 87.1 MCH 29.5 MCHC 33.9 RDW 12.6 Plt Count 284 D MPV 7.9 Absolute Neuts (auto) 4.8 Neutrophils % 57.3 Lymphocytes % 28.3 Monocytes % 8.6 Eosinophils % 5.2 H Basophils % 0.6 Nucleated RBC % 0 PT with INR 12.40 INR 1.10 Sodium Potassium Chloride Carbon Dioxide Anion Gap BUN Creatinine Creat Clearance w eGFR Random Glucose Calcium Magnesium Total Bilirubin AST ALT Alkaline Phosphatase Creatine Kinase Troponin I Total Protein Albumin Urine Color Yellow Urine Appearance Cloudy Urine pH 7.0 Ur Specific [place] 1.023 Urine Protein Negative Urine Glucose (UA) Negative Urine Ketones Negative Urine Blood Negative Urine Nitrite Negative Urine Bilirubin Negative Urine Urobilinogen 2.0 Ur Leukocyte Esterase Negative 03/28/18 03/28/18 22:30 22:30 WBC RBC Hgb Hct MCV MCH MCHC RDW Plt Count MPV Absolute Neuts (auto) Neutrophils % Lymphocytes % Monocytes % Eosinophils % Basophils % Nucleated RBC % PT with INR INR Sodium 139 Potassium 3.8 Chloride 107 Carbon Dioxide 27 Anion Gap 5 L BUN 21 H D Creatinine 1.2 D Creat Clearance w eGFR > 60 Random Glucose 99 Calcium 8.9 Magnesium 1.9 Total Bilirubin 0.4 AST 22 D ALT 40 D Alkaline Phosphatase 64 Creatine Kinase 127 Troponin I < 0.02 Total Protein 7.0 Albumin 3.6 Urine Color Urine Appearance Urine pH Ur Specific [place] Urine Protein Urine Glucose (UA) Urine Ketones Urine Blood Urine Nitrite Urine Bilirubin Urine Urobilinogen Ur Leukocyte Esterase CXR: my read- no acute pathology EKG: NSR, no signs of ischemia ASSESSMENT/PLAN: 47M w/ hx of HLD, HTN, pre-DM, and cardiac cath in 2014 (no stents performed) presenting with chest discomfort today. #chest discomfort -r/o ACS -cardiology consult, Dr. Miller, f/u recs -f/u serial EKG and trops. 1st set normal -f/u echo -pain control -supplemental O2 PRN -continue home ASA and lipitor #HTN -BP of 145/83 in ED -continue home diltiazem 120 HS -started pt on losartan 100mg qam #HLD -continue home lipitor, fenofibric acid, and omega 3 fatty acids #pre-DM -last Hgba1c of 5.7 in 03/2018 -educated pt on diet, exercise, and weight loss #FEN/ppx -no IVF -electrolytes wnl -sodium controlled diet -no GI ppx indicated -heparin SQ #dispo -admit to tele obs Case discussed with attending, Dr. Estrada. -Chet Garner Visit type - Emergency Visit Emergency Visit: Yes ED Registration Date: 03/29/18 Care time: The patient presented to the Emergency Department on the above date and was hospitalized for further evaluation of their emergent condition. - New Patient This patient is new to me today: Yes Date on this admission: 03/29/18 - Critical Care Critical Care patient: No Hospitalist Screening - Colonoscopy Questionnaire Colonoscopy Questionnaire: Colonoscopy Questionnaire - Patient: 50 - 75 years old and never had a screening colonoscopy: Unknown History of colon or rectal polyps, or CA: Unknown History of IBD, Crohn's disease or UC: Unknown History of abdominal radiation therapy as a child: Unknown - Relative: 1 with colon or rectal CA, or polyps at age 60 or younger: Unknown Colon or rectal CA diagnosed at age 45 or younger: Unknown Multiple relatives with colon or rectal CA: Unknown - Outcome: Screening Result: Negative Screen
--- NOTE | 2018-03-29 04:41 | PN ---
Teaching Attending Note Name of Resident: Chet Garner ATTENDING PHYSICIAN STATEMENT I saw and evaluated the patient. I reviewed the resident's note and discussed the case with the resident. I agree with the resident's findings and plan as documented. SUBJECTIVE: Patient is a 47 year old man with past medical history of borderline diabetes, HLD, cardiac cath (2015 - no stents) and HTN, who presents to the ER complaining of chest pain onset today. He describes his chest pain as ranging from mild to moderate, without radiation or modifying factors. He notes that he had a chest pain episode 2 days ago and drove to the ED but decided against being seeing. At the time he had chest pain, he also had shortness of breath, jaw pain, left arm pain and sweaty palms. He notes that he saw Dr. Brittney Sullivan today and made an appointment to see Dr. Miller tomorrow. The last time he saw Dr. Miller was 6 months ago. The patient was given Nitro and has improved. OBJECTIVE: Alert and in no acute distress. Pain free. Vital Signs Period Temp Pulse Resp BP Sys/Booth Pulse Ox Last 24 Hr 98.5 F-98.9 F 65-84 18-18 114-145/71-83 97-100 HEENT: No Jaundice, eye redness or discharge, PERRLA, EOMI. Normocephalic, atraumatic. External ears are normal and hearing is grossly intact. No nasal discharge. Neck: Supple, nontender. No palpable adenopathy or thyromegaly. No JVD Chest: Good effort. Clear to auscultation and percussion. Heart: Regular. No S3, rub or murmur Abdomen: Not distended, soft, nontender and no HSM. No rebound or guarding. Normoactive bowel sounds. Ext: Peripheral pulses intact. No leg edema. Skin: Warm and dry. No petechiae, rash or ecchymosis. Neuro: Alert. Oriented x3. CN 2-12 grossly intact. Sensation grossly intact in all four extremities and DTR are symmetric. Current Medications Generic Name Dose Route Start Last Admin Trade Name Freq PRN Reason Stop Dose Admin Acetaminophen 650 mg 03/29/18 03:18 Tylenol - PO Q4H PRN PAIN LEVEL 1-5 Aspirin 81 mg 03/29/18 22:00 Asa - PO HS JOI Atorvastatin Calcium 40 mg 03/29/18 22:00 Lipitor - PO HS JOI Diltiazem HCl 120 mg 03/29/18 22:00 Cardizem Cd - PO HS JOI Fenofibric Acid 135 mg 03/29/18 22:00 Trilipix - PO HS JOI Heparin Sodium (Porcine) 5,000 unit 03/29/18 06:00 Heparin - SQ TID [facility] Losartan Potassium 100 mg 03/29/18 10:00 Cozaar - PO DAILY JOI Nitroglycerin 0.4 mg 03/29/18 03:20 Nitrostat - SL Q5M PRN FOR CHEST PAIN Non-Formulary Medication 50,000 unit 03/29/18 03:30 Cholecalciferol (Vitamin D3) [Vitamin D3] PO WEEKLY [facility] [id number] Ethyl Esters 1 gm 03/29/18 22:00 Lovaza - PO HS [facility] Home Medications Medication Instructions Recorded Aspirin [ASA -] 81 mg PO HS 03/17/15 Atorvastatin Ca [Lipitor] 40 mg PO HS 11/24/16 Cholecalciferol (Vitamin D3) 50,000 unit PO WEEKLY 11/25/16 [Vitamin D3] Diltiazem HCl [Diltiazem 24Hr ER] 120 mg PO HS 11/25/16 Fenofibric Acid (Choline) 135 mg PO HS 11/25/16 [Fenofibric Acid] Nitroglycerin Sublingual 0.4 mg SL [id number] PRN 11/25/16 [Nitrostat -] [place]-3 Fatty Acids [[place]-3] 1,000 mg PO HS 11/25/16 Abnormal Lab Results 03/28/18 03/28/18 22:30 22:30 Eosinophils % 5.2 H Anion Gap 5 L BUN 21 H D ASSESSMENT AND PLAN: 1. Chestpain - He has multiple risk factors for ACS. Thusfar no evidence of acute CT. Will admit to telemetry to rule out ACS and get ECHO. Cardiology consult. Continue Asprin and Lipitor. 2. Hypertension - Needs outpatient work up for secondary hypertension. Add losartan 100 mg q am - in view of prediabetes history and for a better round the clock BP control. 3. DVT prophylaxis - Heparin 5000u sq tid. 4. Advance directives - Full code
[2018-03-29] MEDS: HEPARIN NA (PORCINE) 5,000 UNITS/ML 1ML VIAL SQ SCH ×3 (05:49→21:42)
[2018-03-29] MEDS ORDERED: HEPARIN NA (PORCINE) 5,000 UNITS/ML 1ML VIAL ONE (05:50)
[2018-03-29 07:10] LABS: BASO % 0.5 % (0-2.0); EOS % 6.3 % (0-4.5); HEMATOCRIT 40.6 % (35.4-49); LYMPH % 36.9 % (8-40); MCHC 34.4 g/dl (32.0-35.9); MEAN CELL VOLUME 87.4 fl (80-96); MEAN PLT VOLUME 8.1 fl (7.5-11.1); MONO % 8.6 % (3.8-10.2); NEUT % 47.7 % (42.8-82.8); PLATELET COUNT 257 K/MM3 (134-434); RBC 4.65 M/mm3 (4.00-5.60); RDW 12.8 % (11.9-15.9); WHITE BLOOD COUNT 8.1 K/mm3 (4.0-10.0)
[2018-03-29 07:58] LABS: ANION GAP 10 (8-16); BLOOD UREA NITROGEN 20 mg/dL (7-18); CALCIUM 8.6 mg/dL (8.5-10.1); CHLORIDE 103 mmol/L (98-107); CO2 25 mmol/L (21-32); GLUCOSE,RANDOM 88 mg/dL (74-106); POTASSIUM 3.9 mmol/L (3.5-5.1); SODIUM 138 mmol/L (136-145)
[2018-03-29 08:00] LABS: CHOLESTEROL 129 mg/dL (50-200); HDL CHOLESTEROL 47 mg/dL (40-60); TRIGLYCERIDES 266 mg/dL (35-160)
[2018-03-29] MEDS: LOSARTAN POTASSIUM 50 MG TABLET (FP) PO SCH (09:44)
--- NOTE | 2018-03-29 11:51 | EKG ---
Test Reason : Blood Pressure : / mmHG Vent. Rate : 063 BPM Atrial Rate : 063 BPM P-R Int : 216 ms QRS Dur : 104 ms QT Int : 410 ms P-R-T Axes : 046 000 023 degrees QTc Int : 419 ms SINUS RHYTHM WITH 1ST DEGREE A-V BLOCK OTHERWISE NORMAL ECG WHEN COMPARED WITH ECG OF 28-MAR-2018 21:18, [place] INTERVAL HAS INCREASED VENT. RATE HAS DECREASED BY 33 BPM QUESTIONABLE CHANGE IN QRS AXIS ST ELEVATION NOW PRESENT IN ANTERIOR LEADS Confirmed by ZOHAIB LUBIN MD ([id number]) on 03/29/2018 11:51:08 AM Referred By: Confirmed By:ZOHAIB LUBIN MD
--- NOTE | 2018-03-29 11:51 | EKG ---
Test Reason : Blood Pressure : / mmHG Vent. Rate : 096 BPM Atrial Rate : 096 BPM P-R Int : 158 ms QRS Dur : 090 ms QT Int : 352 ms P-R-T Axes : 053 057 042 degrees QTc Int : 444 ms NORMAL SINUS RHYTHM NORMAL ECG WHEN COMPARED WITH ECG OF 05-MAY-2017 20:33, QUESTIONABLE CHANGE IN QRS AXIS Confirmed by ZOHAIB LUBIN MD ([id number]) on 03/29/2018 11:51:44 AM Referred By: Confirmed By:ZOHAIB LUBIN MD
--- NOTE | 2018-03-29 15:16 | PN ---
Teaching Attending Note Name of Resident: Kinga Hwang ATTENDING PHYSICIAN STATEMENT I saw and evaluated the patient. I reviewed the resident's note and discussed the case with the resident. I agree with the resident's findings and plan as documented. SUBJECTIVE: Patient is chest pain free at this time. No fever or chills, no shortness of breath. OBJECTIVE: Vital Signs Temperature 98.1 F 03/29/18 09:52 Pulse Rate 76 03/29/18 09:52 Respiratory Rate 18 03/29/18 09:52 Blood Pressure 108/63 03/29/18 09:52 O2 Sat by Pulse Oximetry (%) 99 03/29/18 06:31 CBCD WBC 8.1 K/mm3 (4.0-10.0) 03/29/18 06:00 RBC 4.65 M/mm3 (4.00-5.60) 03/29/18 06:00 Hgb 14.0 GM/dL (11.7-16.9) 03/29/18 06:00 Hct 40.6 % (35.4-49) 03/29/18 06:00 MCV 87.4 fl (80-96) 03/29/18 06:00 MCHC 34.4 g/dl (32.0-35.9) 03/29/18 06:00 RDW 12.8 % (11.9-15.9) 03/29/18 06:00 Plt Count 257 K/MM3 (134-434) 03/29/18 06:00 MPV 8.1 fl (7.5-11.1) 03/29/18 06:00 CMP Sodium 138 mmol/L (136-145) 03/29/18 06:00 Potassium 3.9 mmol/L (3.5-5.1) 03/29/18 06:00 Chloride 103 mmol/L (98-107) 03/29/18 06:00 Carbon Dioxide 25 mmol/L (21-32) 03/29/18 06:00 Anion Gap 10 (8-16) 03/29/18 06:00 BUN 20 mg/dL (7-18) H 03/29/18 06:00 Creatinine 1.0 mg/dL (0.7-1.3) 03/29/18 06:00 Creat Clearance w eGFR > 60 (>60) 03/29/18 06:00 Random Glucose 88 mg/dL (74-106) 03/29/18 06:00 Calcium 8.6 mg/dL (8.5-10.1) 03/29/18 06:00 Total Bilirubin 0.4 mg/dL (0.2-1.0) 03/28/18 22:30 AST 22 U/L (15-37) D 03/28/18 22:30 ALT 40 U/L (12-78) D 03/28/18 22:30 Alkaline Phosphatase 64 U/L (45-117) 03/28/18 22:30 Total Protein 7.0 g/dl (6.4-8.2) 03/28/18 22:30 Albumin 3.6 g/dl (3.4-5.0) 03/28/18 22:30 CARDIAC ENZYMES Creatine Kinase 127 IU/L (39-308) 03/28/18 22:30 Troponin I < 0.02 ng/ml (0.00-0.05) 03/29/18 06:00 Current Medications Generic Name Dose Route Start Last Admin Trade Name Freq PRN Reason Stop Dose Admin Acetaminophen 650 mg 03/29/18 03:18 Tylenol - PO Q4H PRN PAIN LEVEL 1-5 Aspirin 81 mg 03/29/18 22:00 Asa - PO HS [facility] Atorvastatin Calcium 40 mg 03/29/18 22:00 Lipitor - PO HS [facility] Diltiazem HCl 120 mg 03/29/18 22:00 Cardizem Cd - PO HS [facility] Ergocalciferol 50,000 unit 04/04/18 10:00 Drisdol - PO We@1000 [facility] Fenofibric Acid 135 mg 03/29/18 22:00 Trilipix - PO HS [facility] Heparin Sodium (Porcine) 5,000 unit 03/29/18 06:00 03/29/18 13:25 Heparin - SQ 5,000 unit TID JOI Administration Losartan Potassium 100 mg 03/29/18 10:00 03/29/18 09:44 Cozaar - PO 100 mg DAILY [facility] Administration Nitroglycerin 0.4 mg 03/29/18 03:20 Nitrostat - SL Q5M PRN FOR CHEST PAIN [id number] Ethyl Esters 1 gm 03/29/18 22:00 Lovaza - PO [facility] Home Medications Medication Instructions Recorded Aspirin [ASA -] 81 mg PO HS 03/17/15 Atorvastatin Ca [Lipitor] 40 mg PO HS 11/24/16 Cholecalciferol (Vitamin D3) 50,000 unit PO WEEKLY 11/25/16 [Vitamin D3] Diltiazem HCl [Diltiazem 24Hr ER] 120 mg PO HS 11/25/16 Fenofibric Acid (Choline) 135 mg PO HS 11/25/16 [Fenofibric Acid] Nitroglycerin Sublingual 0.4 mg SL [id number] PRN 11/25/16 [Nitrostat -] [place]-3 Fatty Acids [[place]-3] 1,000 mg PO HS 11/25/16 Laboratory Tests 03/28/18 03/29/18 03/29/18 22:30 06:00 06:00 Troponin I < 0.02 < 0.02 Triglycerides 266 H D Cholesterol 129 Total LDL Cholesterol 49 HDL Cholesterol 47 03/29/18 15:05 Troponin I < 0.02 Triglycerides Cholesterol Total LDL Cholesterol HDL Cholesterol PE: per resident's note ASSESSMENT AND PLAN: Patient is a 47M w/hx of HLD, HTN, pre-DM, and cardiac cath in 2014 (without any stents) presented with chest pain radiating to his Jaw. #Acute chest discomfort r/o ACS , cardiology consult Dr. Miller, , trops are negative so far. continue ASpirin, nuclear stress test as per cardio. #HLD with elevated Tgs, will increase dose of Lovaza to 2gm in am and 2gm at night. continue Lipitor , low fat diet recommended. #HTN controlled continue home meds. #pre-DM last Hgba1c of 5.7 in 03/2018; diet control for now DVT Px:heparin sq
--- NOTE | 2018-03-29 15:51 | EKG ---
Test Reason : Blood Pressure : / mmHG Vent. Rate : 080 BPM Atrial Rate : 080 BPM P-R Int : 186 ms QRS Dur : 104 ms QT Int : 364 ms P-R-T Axes : 050 027 038 degrees QTc Int : 419 ms NORMAL SINUS RHYTHM INCOMPLETE RIGHT BUNDLE BRANCH BLOCK BORDERLINE ECG WHEN COMPARED WITH ECG OF 29-MAR-2018 06:24, [place] INTERVAL HAS DECREASED T WAVE AMPLITUDE HAS DECREASED IN ANTERIOR LEADS Confirmed by TRISTIAN FAIRCHILD, ZOHAIB ([id number]) on 03/29/2018 3:51:05 PM Referred By: Confirmed By:ZOHAIB LUBIN MD
--- NOTE | 2018-03-29 17:56 | PN ---
Physical Exam: SUBJECTIVE: Patient seen and examined at bedside. Today, pt states that he no longer has chest pain. It was relieved with nitro taken at home, prior to admission. Denies WHEELER, fever, chills, SOB, or changes in urinary or bowel function. OBJECTIVE: Vital Signs Period Temp Pulse Resp BP Sys/Booth Pulse Ox Last 24 Hr 98 F-98.9 F 65-85 18-18 108-145/63-83 95-100 GENERAL: The patient is awake, alert, and fully oriented, in no acute distress. HEAD: Normal with no signs of trauma. EYES: PERRL, extraocular movements intact, sclera anicteric, conjunctiva clear. ENT: Ears normal, nares patent, oropharynx clear without exudates, moist mucous membranes. NECK: Trachea midline, supple. LUNGS: Breath sounds equal, clear to auscultation bilaterally, no wheezes, no crackles, no accessory muscle use. HEART: Regular rate and rhythm, S1, S2 without murmur, rub or gallop. ABDOMEN: Soft, nontender, nondistended, normoactive bowel sounds, no guarding EXTREMITIES: 2+ pt pulses, warm, well-perfused, no edema. NEUROLOGICAL: Cranial nerves II through XII grossly intact. PSYCH: Normal mood, normal affect. SKIN: Warm, dry, normal turgor Laboratory Results 03/29/18 06:00 WBC 8.1 Hgb 14.0 Hct 40.6 Plt Count 257 03/29/18 06:00 Sodium 138 Potassium 3.9 Chloride 103 Carbon Dioxide 25 BUN 20 H Creatinine 1.0 Troponin trend 03/28/18 03/29/18 03/29/18 22:30 06:00 15:05 Troponin I < 0.02 < 0.02 < 0.02 Lipid panel 03/29/18 06:00 Triglycerides 266 H D Cholesterol 129 Total LDL Cholesterol 49 HDL Cholesterol 47 Active Medications Generic Name Dose Route Start Last Admin Trade Name Freq PRN Reason Stop Dose Admin Acetaminophen 650 mg 03/29/18 03:18 Tylenol - PO Q4H PRN PAIN LEVEL 1-5 Aspirin 81 mg 03/29/18 22:00 Asa - PO HS JOI Atorvastatin Calcium 40 mg 03/29/18 22:00 Lipitor - PO HS JOI Diltiazem HCl 120 mg 03/29/18 22:00 Cardizem Cd - PO HS JOI Ergocalciferol 50,000 unit 04/04/18 10:00 Drisdol - PO We@1000 JOI Fenofibric Acid 135 mg 03/29/18 22:00 Trilipix - PO HS JOI Heparin Sodium (Porcine) 5,000 unit 03/29/18 06:00 03/29/18 13:25 Heparin - SQ 5,000 unit TID JOI Administration Losartan Potassium 100 mg 03/29/18 10:00 03/29/18 09:44 Cozaar - PO 100 mg DAILY JOI Administration Nitroglycerin 0.4 mg 03/29/18 03:20 Nitrostat - SL Q5M PRN FOR CHEST PAIN Kufso-3-Mmno Ethyl Esters 1 gm 03/29/18 22:00 Lovaza - PO HS JOI TESTS 03/28/18: CXR: no acute pulm dz 03/28/18: EKG: NSR, questionable change in QRS axis, Qtc 444ms 03/29/18: sinus rhythm with 1st degree AV block, WY has increased, vent rate decreased, questionable change in QRS axis, ST elevation now in anterior leads. Qtc 419ms 03/29/18: ECHO: EF 63.5%, LV size, thickness, function normal, RV normal in size and fnc, trace MR, trace TR 03/29/18: EKG: NSR, incomplete RBBB, WY interval increased, t wave amp decreased in anterior leads ASSESSMENT/PLAN: 47 y/o M w/ hx of HLD, HTN, pre-DM, and cardiac cath in 2014 (no stents performed; done by Dr. Miller, [facility]) presenting with chest discomfort today. #chest discomfort r/o ACS -trops (-)x 3 -with past hx of cath, with angina relieved with NG -ECHO with adequate LV fnc -d/w Dr. Miller- will need nuclear stress test tomorrow (Sestamibi) -supplemental O2 PRN -continue [id number] PO qd, lipitor 40mg PO HS -NG SL PRN for pain -serial EKGs -telemetry monitoring #HTN-currently controlled -continue home diltiazem 120mg PO qHS -cozaar 100mg PO qd #HLD -continue lipitor 40mg PO qHS -Fenofibric acid 135mg PO qHS -[place] 3 acid 1gm PO qHS #pre-DM -last Hgba1c of 5.7 in 03/2018 -no tx indicated at this time #PPX Hep 5000 SQ TID #FEN -no indication for IVF at this time -continue to follow lytes -NPO after MN for stress test tomorrow #Dispo tele obs Visit type - Emergency Visit Emergency Visit: No - New Patient This patient is new to me today: Yes Date on this admission: 03/29/18 - Critical Care Critical Care patient: No
[2018-03-29] MEDS: OMEGA-3 ACID ETHYL ESTERS (FATTY-ACIDS) 1 GM CAPSULE (FP) PO SCH (21:42)
--- NOTE | 2018-03-29 21:50 | CONS ---
DATE OF CONSULTATION: 03/29/2018 TIME OF CONSULTATION: 8:15 p.m. CONSULTATION REQUESTED BY: Fallon Gutiérrez MD CARDIOLOGY CONSULTATION CHIEF COMPLAINT: Left-sided chest pain. HISTORY OF PRESENT ILLNESS: Patient is a 47-year-old gentleman who is originally from [facility], has a history of dyslipidemia, chest pain syndrome, nonobstructive coronary artery disease, and history of right coronary vasospastic disease. He presented with history of left-sided pressure-like chest discomfort that occurred last Monday evening, radiated to the left jaw and had paresthesias and had mild shortness of breath. Patient says he took 2 sublingual nitroglycerin with relief. This pain persisted for a total of 30 minutes. The following day, he felt fatigued and had no chest discomfort. On Monday, while he was driving, he developed left-sided upper anterior chest discomfort, which again referred to the jaw and he decided to come to the emergency room. Since admission, he has had no further chest pain or discomfort. Patient has a history of glucose intolerance. No history of hypertension. PAST HISTORY: As mentioned in the history of present illness. SURGICAL HISTORY: No known surgeries. SOCIAL HISTORY: He is employed, , has 3 children. He has an occasional cigar and whiskey. He admits to poor dietary compliance. FAMILY HISTORY: Father is alive. He is 85 years of age and has diabetes mellitus and hypercholesterolemia. Mother is alive and has hypercholesterolemia. Has two brothers and two sisters. One of the sisters underwent surgery for a ruptured cerebellar aneurysm. An older brother is diabetic and hypercholesterolemic. Has coronary artery disease and has had two PCIs and stenting. The other siblings are healthy. The patient had a brother who in an automobile accident. MEDICATIONS: 1. Losartan 100 mg p.o. daily. 2. Heparin 5000 units subcutaneously t.i.d. 3. Lovaza 2 g p.o. b.i.d. 4. Diltiazem 120 mg p.o. nightly. 5. Fenofibric acid 135 mg p.o. daily nightly. 6. Atorvastatin 40 mg p.o. daily. 7. Nitrostat 0.4 mg sublingually p.r.n. for chest discomfort. 8. Aspirin 81 mg p.o. daily. 9. Vitamin D2 50,000 units to be given on April 04, 2018. REVIEW OF SYSTEMS: Constitutional: No history of chills, fever or night sweats. No history of unintentional weight loss. HEENT: History of occasional headaches. No history of diplopia, blurred vision. Uses glasses for reading. No history of epistaxis or hoarseness. No history of tinnitus and feels that he may have some deafness. Cardiovascular: See history of present illness. History of hypertension. Respiratory: No history of cough, expectoration, or hemoptysis. No history of tuberculosis. Gastrointestinal: No history of nausea, vomiting, melena, or hematemesis. No history of reflux. No history of abdominal pain or discomfort. No history of change in bowel habits. Endocrine: No history of polyuria or polydipsia. History of glucose intolerance. No history of known endocrine disorder. Musculoskeletal: History of low back syndrome with paresthesias involving both lower extremities. No history of myalgias. Genitourinary: No history of dysuria, frequency, hematuria, or nocturia. Hematologic/Lymphatic: No history of ecchymosis, bleeding, or anemia. No history of lymphadenopathy. PHYSICAL EXAMINATION: General: A 47-year-old gentleman who is in no acute distress. No pallor, cyanosis, clubbing, or jaundice. Vital Signs: Weight 190 pounds, blood pressure 108/63 mmHg, pulse 76 beats per minute and regular, respirations 18 per minute, temperature 98.1oF, oxygen saturation 99%. Neck: Supple, no jugular venous distention. Carotids are 2+. Upstrokes were normal. No bruits were heard. There was probable bilateral thyromegaly. Trachea was midline. Heart: PMI is in the 5th intercostal space. No heaves or thrills. S1 and S2 were normal. No murmur or gallops were heard. Lungs: Clear on auscultation. Abdomen: Soft, protuberant, and nontender. No hepatosplenomegaly or palpable masses were felt. Bowel sounds were present. No bruits were heard. Extremities: No calf tenderness, dependent edema. Pulses were equal. No deformities were seen. LABORATORY DATA: 1. X-ray of the chest on March 28, 2018, impression: No evidence of active pulmonary disease. 2. ECG: Sinus rhythm with intraatrial conduction abnormality. Incomplete right bundle branch block, nonspecific ST changes. 3. Echocardiogram, interpretation summary: Left ventricular size, thickness and function are normal. The right ventricle is normal in size and function. There is trace mitral regurgitation. There is trace tricuspid regurgitation. 4. CBC on March 29, 2018: WBC count 8100, hemoglobin 14.0 g/dL, platelet count 257,000. Eosinophils were elevated at 6.3%. The remainder of the differential was normal. 5. Chemistries on March 29, 2018: Sodium 138, potassium 3.9, chloride 103, CO2 25 mmol/L, BUN 20, creatinine 1.0 mg/dL. 6. Triglycerides 266 mg/dL, total cholesterol 129, LDL cholesterol 49, HDL cholesterol 47. CK 127, troponins less than 0.03 on 3 different occasions. IMPRESSION: 1. Nonobstructive coronary artery disease (catheter proven in 2014), clinical presentation is compatible with angina pectoris. 2. History of vasospastic right coronary artery disease. 3. Dyslipidemia, type 2B. 4. Hypertension, currently normotensive. 5. Glucose intolerance. 6. Incomplete right bundle branch block. 7. History of low back syndrome. 8. Thyromegaly needs to be excluded. 9. History of vitamin D deficiency. RECOMMENDATIONS: 1. Patient is scheduled to undergo a Myoview perfusion scan. 2. Continue current medication and the dose of diltiazem needs to be increased. 3. Risk modifications. 4. Consider thyroid ultrasound. 5. Further suggestions will depend upon the results of the above mentioned test. Thank you for the referral. AVERY QUINN M.D. [id number]
[2018-03-29] MEDS ORDERED: FENOFIBRIC ACID 135 MG CAP PO SCH (22:00)
[2018-03-29] MEDS ORDERED: ATORVASTATIN CA 40 MG TABLET (FP) PO SCH (22:00)
[2018-03-29] MEDS ORDERED: OMEGA-3 ACID ETHYL ESTERS (FATTY-ACIDS) 1 GM CAPSULE (FP) PO SCH (22:00)
[2018-03-29] MEDS ORDERED: ASPIRIN 81 MG CHEWABLE TABLETS PO SCH (22:00)
[2018-03-30 03:17] VITALS: TEMP 97.9
[2018-03-30] MEDS: HEPARIN NA (PORCINE) 5,000 UNITS/ML 1ML VIAL SQ SCH (05:54)
[2018-03-30 06:56] LABS: ANION GAP 7 (8-16); BLOOD UREA NITROGEN 19 mg/dL (7-18); CALCIUM 9.1 mg/dL (8.5-10.1); CHLORIDE 104 mmol/L (98-107); CO2 28 mmol/L (21-32); CREATININE 1.3 mg/dL (0.7-1.3); GLUCOSE,RANDOM 94 mg/dL (74-106); POTASSIUM 4.4 mmol/L (3.5-5.1); SODIUM 139 mmol/L (136-145)
[2018-03-30] MEDS: LOSARTAN POTASSIUM 50 MG TABLET (FP) PO SCH (09:09)
[2018-03-30] MEDS: OMEGA-3 ACID ETHYL ESTERS (FATTY-ACIDS) 1 GM CAPSULE (FP) PO SCH (09:09)
[2018-03-30 15:07] VITALS: BP 100/68; PULSE 80
--- NOTE | 2018-03-30 16:56 | DS ---
Physical Exam: SUBJECTIVE: Patient seen and examined at bedside. No acute events overnight. Today, pt for stress test. Results discussed at length with pt and family member. Questions answered. Denies WHEELER, fever, chills, SOB, chest pain, or changes in urinary or bowel function. OBJECTIVE: Vital Signs Period Temp Pulse Resp BP Sys/Booth Pulse Ox Last 24 Hr 97.9 F-98.8 F 67-84 8-20 98-119/63-68 99-99 PHYSICAL EXAM GENERAL: The patient is awake, alert, and fully oriented, in no acute distress. HEAD: Normal with no signs of trauma. EYES: PERRL, extraocular movements intact, sclera anicteric, conjunctiva clear. ENT: Ears normal, nares patent, oropharynx clear without exudates, moist mucous membranes. NECK: Trachea midline, supple. LUNGS: Breath sounds equal, clear to auscultation bilaterally, no wheezes, no crackles, no accessory muscle use. HEART: Regular rate and rhythm, S1, S2 without murmur, rub or gallop. ABDOMEN: Soft, nontender, nondistended, normoactive bowel sounds, no guarding EXTREMITIES: 2+ pt pulses, warm, well-perfused, no edema. NEUROLOGICAL: Cranial nerves II through XII grossly intact. PSYCH: Normal mood, normal affect. SKIN: Warm, dry, normal turgor LABS Laboratory Results - last 24 hr 03/30/18 05:30 Sodium 139 Potassium 4.4 Chloride 104 Carbon Dioxide 28 Anion Gap 7 L BUN 19 H Creatinine 1.3 D Creat Clearance w eGFR 59.43 Random Glucose 94 Calcium 9.1 Additional testing 03/28/18 03/29/18 03/29/18 22:30 06:00 06:00 Troponin I < 0.02 < 0.02 Triglycerides 266 H D Cholesterol 129 Total LDL Cholesterol 49 HDL Cholesterol 47 03/29/18 15:05 Troponin I < 0.02 Cholesterol TESTS 03/28/18: CXR: no acute pulm dz 03/28/18: EKG: NSR, questionable change in QRS axis, Qtc 444ms 03/29/18: sinus rhythm with 1st degree AV block, MD has increased, vent rate decreased, questionable change in QRS axis, ST elevation now in anterior leads. Qtc 419ms 03/29/18: ECHO: EF 63.5%, LV size, thickness, function normal, RV normal in size and fnc, trace MR, trace TR 03/29/18: EKG: NSR, incomplete RBBB, MD interval increased, t wave amp decreased in anterior leads 03/30/18: Sestamibi stress test: negative/normal exercise EKG, asymptomatic. nuclear results: normal myocardial perfusion with no evidence of exercise- induced ischemia. normal wall motion with LVEF 61% and no evidence of transient ischemic dilatation. HOSPITAL COURSE: Date of Admission:03/29/18 Date of Discharge: 03/30/18 Admit diagnosis: angina, r/o ACS 47 y/o M w/ hx of HLD, HTN, pre-DM, and cardiac cath in 2014 (no stents performed; Dr. Miller, 2014) who presented to the ED with chest discomfort. As per pt, his chest discomfort began while driving in his car. It was left-sided, and radiated to his left arm, left shoulder, and jaw. Also was a/w SOB, lightheadedness, and diaphoresis. It lasted for about twenty minutes until he took nitrostat which relieved it. Pt denied fevers, chills, headache, PAK, PND, orthopnea, LE edema, abdominal pain, emesis, diarrhea, constipation, and dysuria. Pt went to his PCP, Dr. Sullivan, who sent him to [facility]. Pt admitted for angina r/o ACS. While pt was in the hospital, he underwent multiple EKGs which revealed the followin03/29/18: sinus rhythm with 1st degree AV block, MD has increased, vent rate decreased, questionable change in QRS axis, ST elevation now in anterior leads. Qtc 419ms. 03/29/18: EKG: NSR, incomplete RBBB, MD interval increased, t wave amp decreased in anterior leads. ECHO was also done which revealed EF 63.5%, LV size, thickness, function normal, RV normal in size and fnc, trace MR, trace TR. Pt was seen by cardiology and trops were trended, (-) x 3. Pt also underwent sestamibi stress test which showed: negative/normal exercise EKG, asymptomatic. nuclear results: normal myocardial perfusion with no evidence of exercise-induced ischemia. normal wall motion with LVEF 61% and no evidence of transient ischemic dilatation. Case d/w Dr. Miller, his cardio - he will see him on Monday, 04/02 for his next appointment to f/u. Pt dose of diltiazem has been changed from 120mg PO HS to 180mg PO HS upon cardio suggestion. Pt also has been started on cozaar 100mg PO qd as per team. Will continue as per cardio. If pt develops chest pain, he is to return to ER immediately. Discussed at length with pt and family member, expressed verbal understanding Minutes to complete discharge: 44 Discharge Summary Reason For Visit: CHEST PAIN Condition: Fair - Instructions Diet, Activity, Other Instructions: You were in the hospital because you had chest pain. While you were in the hospital, you were seen by Dr. Miller, your application developer. You had multiple EKGs and had a stress test. Your test was negative, and no abnormality was seen concerning the blood flow to your heart during exercise. The wall motion of your left ventricle (of the heart) was also found to be normal. Your visit You were seen by the medicine and cardiology teams Medications You may continue your home medications, however please note the following medication change: -Diltiazem has been changed from 120mg to 180mg daily at night -you have been started on cozaar (losartan) 100mg daily Important instructions: If you develop chest pain, please go to the emergency room. Follow up Please follow up with the following doctors upon discharge: -Dr. Miller, your application developer- on Monday04/02/18 -Dr. Sullivan, your primary care physician - this week. You may need a thyroid ultrasound. You can discuss this with Dr. Sullivan. If you develop shortness of breath, or chest pain, please go to the hospital. Referrals: Brittney Sullivan MD [Staff Physician] - 1 Week Flex Miller MD [Primary Care Provider] - 04/02/18 Disposition: HOME - Home Medications Comprehensive Discharge Medication List: Ambulatory Orders Aspirin [ASA -] 81 mg PO HS 03/17/15 Atorvastatin Ca [Lipitor] 40 mg PO HS 11/24/16 Cholecalciferol (Vitamin D3) [Vitamin D3] 50,000 unit PO WEEKLY 11/25/16 Fenofibric Acid (Choline) [Fenofibric Acid] 135 mg PO HS 11/25/16 [place]-3 Fatty Acids [[place]-3] 1,000 mg PO HS 11/25/16 Diltiazem HCl [Diltiazem 24Hr ER] 180 mg PO HS #30 cap.sa.24h 03/30/18 Losartan Potassium [Cozaar -] 100 mg PO DAILY #30 tablet 03/30/18 Nitroglycerin Sublingual [Nitrostat -] 0.4 mg SL [id number] PRN #1 vial 03/30/18 This patient is new to me today: No Emergency Visit: No Critical Care patient: No - Discharge Referral Referred to [facility] No
--- NOTE | 2018-04-02 22:02 | EKG ---
Test Reason : Blood Pressure : / mmHG Vent. Rate : 082 BPM Atrial Rate : 082 BPM P-R Int : 172 ms QRS Dur : 096 ms QT Int : 366 ms P-R-T Axes : 035 059 042 degrees QTc Int : 427 ms NORMAL SINUS RHYTHM NORMAL ECG WHEN COMPARED WITH ECG OF 29-MAR-2018 15:04, NO SIGNIFICANT CHANGE WAS FOUND Confirmed by TOM ALBARRAN MD ([id number]) on 04/02/2018 10:02:34 PM Referred By: Confirmed By:TOM ALBARRAN MD
[2018-04-04] MEDS ORDERED: ERGOCALCIFEROL (VITAMIN D2) 50,000 UNIT CAPSULE (FP) PO SCH (10:00)
== END 2018-03-30 14:59 | disposition home or self-care (01) ==
LOC: JER 21:12 → JERBED 03-29 00:44 → UNDOADMOB 03-29 00:44 → JERBED 03-29 01:00 → UNDOADMOB 03-29 01:00 → INTOOBSV 03-29 03:16 → OBSVTOIN 03-29 03:16 → JERBED 03-29 05:58 → J4W 03-29 16:32
PROVIDERS: ADMIT Internal Medicine; ATTEND Internal Medicine
PROC: 3E013GC Introduction of Other Therapeutic Substance into Subcutaneous Tissue, Percutaneous Approach (ICD-10-PCS; principal; 2018-03-29)
DX: R07.9 Chest pain, unspecified (principal); I10 Essential (primary) hypertension; E78.5 Hyperlipidemia, unspecified; R73.03 Prediabetes; Z98.61 Coronary angioplasty status; Z79.82 Long term (current) use of aspirin; I25.10 Atherosclerotic heart disease of native coronary artery without angina pectoris; I45.10 Unspecified right bundle-branch block
CPT/HCPCS: 36415; 71046-TC-FY; 78452-TC; 80048; 80053; 80061; 81003; 82550; 83721; 83735; 84484; 85025; 85610; 93005; 93010; 93017; 93306-TC; 99285-25; A9502; G0378; J1644

== ENCOUNTER 2023-01-31 04:34 | Day surgery (SDC) | payer OTHER ==
[2023-01-27 09:20] VITALS: BMI 29.9
[2023-01-31 10:07] VITALS: TEMP 97.5
[2023-01-31 11:49] VITALS: BP 114/63; PULSE 65; RESP 17
== END 2023-01-31 11:56 | disposition home or self-care (01) ==
LOC: JASU-ENDO 04:34
PROVIDERS: ATTEND Student in an Organized Health Care Education/Training Program
PROC: 0DBN8ZX Excision of Sigmoid Colon, Via Natural or Artificial Opening Endoscopic, Diagnostic (ICD-10-PCS; 2023-01-31)
PROC: 0DBM8ZX Excision of Descending Colon, Via Natural or Artificial Opening Endoscopic, Diagnostic (ICD-10-PCS; 2023-01-31)
PROC: 0DBP8ZX Excision of Rectum, Via Natural or Artificial Opening Endoscopic, Diagnostic (ICD-10-PCS; principal; 2023-01-31 10:30)
DX: Z12.11 Encounter for screening for malignant neoplasm of colon (principal); D12.8 Benign neoplasm of rectum; K63.5 Polyp of colon; K57.30 Diverticulosis of large intestine without perforation or abscess without bleeding; I10 Essential (primary) hypertension
CPT/HCPCS: 88305-TC